=== PATIENT | female | born 1945 | race Caucasian/White ===

== ENCOUNTER 2016-07-30 19:06 | Emergency (ER) | payer MEDICARE ==
[2016-07-30] MEDS ORDERED: methylPREDNISolone 125 MG* 2 ML VIAL IV ONE (19:31)
[2016-07-30] MEDS ORDERED: Albuterol/Ipratropium NEB.SOL* Albuterol 2.5 MG/Ipratropium 0.5 MG 3 ML INH ONE (19:31)
[2016-07-30] MEDS ORDERED: predniSONE TAB* 20 MG PO ONE (20:31)
--- NOTE | 2016-07-30 20:41 | RAD ---
INDICATION: Short of breath . History of lung carcinoma. COMPARISON: Chest x-ray March 13, 2015 TECHNIQUE: AP seated and lateral views were obtained. FINDINGS: Bones/Soft Tissues: There are no acute bony findings. Cardiomediastinal: The cardiomediastinal silhouette is normal. Lungs: There are chronic basilar interstitial changes right greater than left.. There is mild volume loss in the right chest. Pleura: There are no pleural effusions. Other: None IMPRESSION: NO ACTIVE DISEASE.
--- NOTE | 2016-07-30 20:54 | ED ---
mariluz Cary Timothy, scribed for Roger Novoa MD on 07/30/16 at 1936 . Shortness of Breath - HPI Summary HPI Summary: Kassy Mcdonald is a 71 yo female presenting to [facility] with SOB since 1800 tonight. She states she has also had some diifciulty swallowing. Her Family is present in room. She states she normally when she has SOB from her COPD when she stops moving she has no difficulty breathing, but currently has dyspnea at rest. She has self-medicated with duoneb. Her MHx includes Afib, SD, CAD, coronary stent, HLD, HTN, Lung CA w/ radiation therapy, COPD, emphysema, bronchitis, GERD, gall bladder disease, hysterectomy, renal disease, nephrectomy (right), arthritis, shingles, depression, anxiety, tobacco use. - History of Current Complaint Time Seen by Provider: 07/30/16 19:30 Hx Obtained From: Patient Onset/Duration: Sudden Onset, Lasting Hours, Still Present Timing: Constant Current Severity: Moderate Dyspnea At: Rest - Allergy/Home Medications Allergies/Adverse Reactions: Allergies Allergy/AdvReac Type Severity Reaction Status Date / Time Adhesive Tape [Plastic Tape] Allergy Mild Rash Verified 05/13/13 12:09 Latex Allergy Unknown Unknown Verified 05/13/13 12:09 Reaction Details Pregabalin [From Lyrica] Allergy Altered Verified 05/13/13 12:10 Mental Status Monitor Stickers Allergy Mild Rash Uncoded 05/13/13 12:09 PMH/Surg Hx/FS Hx/Imm Hx Endocrine/Hematology History: Reports: Hx Thyroid Disease Denies: Hx Anticoagulant Therapy, Hx Blood Transfusions, Hx Diabetes, Other Endocrine/Hematological Disorders Cardiovascular History: Reports: Hx Angina, Hx Atrial Fibrillation - well controlled and no meds per pt and daughter, Hx Coronary Artery Disease, Hx Hypercholesterolemia, Hx Hypertension - medicated, Hx Myocardial Infarction, Hx Syncope, Other Cardiovascular Problems/Disorders - HX OF LUNG CA Denies: Hx Congestive Heart Failure, Hx Pacemaker/ICD, Hx Valvular Heart Disease Respiratory History: Reports: Hx Chronic Obstructive Pulmonary Disease (COPD), Hx Lung Cancer, Hx Seasonal Allergies, Hx Sleep Apnea - havent had sleep study, Other Respiratory Problems/Disorders - LUNG CA Denies: Hx Asthma, Hx Pneumonia GI History: Reports: Hx Gall Bladder Disease, Hx Gastroesophageal Reflux Disease Denies: Other GI Disorders - colonoscopy found polyps benign 2011 History: Reports: Hx Renal Disease, Other Problems/Disorders - Right Nephrectomy. 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, Other Musculoskeletal History - back pain when weather is damp Sensory History: Reports: Hx Contacts or Glasses Denies: Hx Hearing Aid, Other Sensory Impairments Opthamlomology History: Reports: Hx Contacts or Glasses Denies: Other Sensory Impairments Neurological History: Denies: Hx Dementia, Hx Seizures, Other Neuro Impairments/Disorders Psychiatric History: Reports: Hx Anxiety - ON MEDICATION, Hx Depression Denies: Hx Eating Disorder, Hx Panic Disorder, Hx Suicide Attempt, Hx of Violent Episodes Against Others, Hx Substance Abuse, Other Psychiatric Issues/ Disorders - Cancer History Cancer Type, Location and Year: Lung Cancer, treated w/ radiation, 2013. RENAL CANCER W/RIGHT NEPHRECTOMY Hx Radiation Therapy: Yes - Surgical History Surgery Procedure, Year, and Place: HYSTERECTOMY, GALLBLADDER 2012, CARDIAC CATH 2012, RIGHT NEPHRECTOMY 2012, Hx Anesthesia Reactions: No Infectious Disease History: Reports: Hx Shingles Denies: Hx Hepatitis, Hx Human Immunodeficiency Virus (HIV), History Other Infectious Disease, Traveled Outside the [place] in Last 30 Days - Family History Known Family History: Positive: Cardiac Disease, Hypertension Negative: Diabetes - Social History Alcohol Use: None Substance Use Type: Reports: None Hx Tobacco Use: Yes Smoking Status (MU): Former Smoker Have You Smoked in the Last Year: No Review of Systems Constitutional: Negative Eyes: Negative ENT: Negative Cardiovascular: Negative Positive: Shortness Of Breath Gastrointestinal: Negative Genitourinary: Negative Musculoskeletal: Negative Skin: Negative Neurological: Negative Psychological: Normal All Other Systems Reviewed And Are Negative: Yes Physical Exam Triage Information Reviewed: Yes Vital Signs On Initial Exam: Initial Vitals Temp Pulse Resp BP Pulse Ox 98.2 F 124 20 119/66 98 07/30/16 20:37 07/30/16 20:37 07/30/16 20:37 07/30/16 20:37 07/30/16 20:37 Vital Signs Reviewed: Yes Appearance: Positive: Well-Appearing - mild sob Skin: Positive: Warm Head/Face: Positive: Normal Head/Face Inspection Eyes: Positive: QUIANA ENT: Positive: Hearing grossly normal Neck: Positive: Supple Respiratory/Lung Sounds: Positive: Decreased Breath Sounds, Wheezes - scattered bilat exp wheezes with prolonged expiration Cardiovascular: Positive: RRR Abdomen Description: Positive: Nontender, Soft Bowel Sounds: Positive: Present Musculoskeletal: Positive: Strength/ROM Intact Neurological: Positive: Alert, Oriented to Person Place, Time Psychiatric: Positive: Affect/Mood Appropriate Diagnostics - Vital Signs Vital Signs Temp Pulse Resp BP Pulse Ox 07/30/16 20:37 98.2 F 124 20 119/66 98 - Laboratory Result Diagrams: 07/30/16 21:50 07/30/16 21:50 Lab Statement: Any lab studies that have been ordered have been reviewed, and results considered in the medical decision making process. - Radiology CXR Xray Interpretation: No Acute Changes - IMPRESSION: NO ACTIVE DISEASE. Radiology Interpretation Completed By: Radiologist - EKG 2032 Cardiac Rate: Tachycardia - 120 BPM EKG Interpretation: Sinus tachycardia at 120 BPM Re-Evaluation - Re-Evaluation First Eval Re-Evaluation Time: 22:20 Change: Improved Comment: Discussed lab and imaging results with Pt, she is agreeable to be discharged. Course/Dx - Course Assessment/Plan: Kassy Mcdonald is a 71 yo female presenting to [facility] with dyspnea at rest soiince 1800 tonight. In the ED course she received Solu-Medrol, deltasone, and Duoneb. Her CXR suggests no active disease. Her EKG suggests sinus tachycardia. After clinical examination and review of her lab and imaging studies she will be discharged home with COPD exacerbation with appropriate instructions. - Diagnoses Provider Diagnoses: COPD exacerbation Discharge - Discharge Plan Condition: Improved Disposition: HOME Prescriptions: predniSONE TAB* [Deltasone TAB*] 40 mg PO DAILY #8 tab Patient Education Materials: COPD (Chronic Obstructive Pulmonary Disease) (ED) Referrals: Viral Brady MD [Primary Care Provider] - 2 Days Additional Instructions: Please follow up with your primary care physician regarding your visit to the emergency department today. Return to the emergency department with any new or recurring symptoms. The documentation as recorded by the mariluz russell Timothy accurately reflects the service I personally performed and the decisions made by me, Roger Novoa MD.
[2016-07-30 21:57] LABS: Hematocrit 34 % (35-47); Hemoglobin 10.9 g/dl (12.0-16.0); Mean Corpuscular HGB Conc 32 g/dl (31-36); Mean Corpuscular Hemoglobin 29 pg (27-31); Mean Corpuscular Volume 90 fL (80-97); Mean Platelet Volume 7 um3 (7.4-10.4); Red Blood Count 3.75 10^6/ul (4.0-5.4); Red Cell Distribution Width 14 % (10.5-15); White Blood Count 7.1 10^3/ul (3.5-10.8)
[2016-07-30 22:12] LABS: Albumin 3.8 g/dL (3.2-5.2); BUN/Creatinine Ratio 14.7 (8-20); Calcium 9.1 mg/dL (8.6-10.3); EGFR African American 74.4 (>60); EGFR Non-African American 57.8 (>60); Globulin 3.5 g/dL (2-4); Potassium 3.5 mmol/L (3.5-5.0); Total Bilirubin 0.3 mg/dL (0.2-1.0); Total Protein 7.3 g/dL (6.4-8.9)
[2016-07-30 22:14] LABS: Troponin I 0.01 ng/mL (<0.04)
[2016-07-30 22:53] VITALS: BP 117/88
== END 2016-07-30 22:54 | disposition home or self-care (01) ==
LOC: ED 19:06
DX: J44.1 Chronic obstructive pulmonary disease with (acute) exacerbation (principal); E07.9 Disorder of thyroid, unspecified; I48.91 Unspecified atrial fibrillation; I10 Essential (primary) hypertension; E78.00 Pure hypercholesterolemia, unspecified; I25.10 Atherosclerotic heart disease of native coronary artery without angina pectoris; J44.9 Chronic obstructive pulmonary disease, unspecified; I25.2 Old myocardial infarction; F41.9 Anxiety disorder, unspecified; F32.9 Major depressive disorder, single episode, unspecified; Z85.118 Personal history of other malignant neoplasm of bronchus and lung; Z90.710 Acquired absence of both cervix and uterus; Z90.49 Acquired absence of other specified parts of digestive tract; Z91.040 Latex allergy status; Z88.8 Allergy status to other drugs, medicaments and biological substances; Z91.048 Other nonmedicinal substance allergy status; Z87.891 Personal history of nicotine dependence
CPT/HCPCS: 36415; 71020; 80053; 83605; 83880; 84484; 85025; 93005; 94640; 99282; A9270-GY; J2930; J7512

== ENCOUNTER 2016-09-24 10:34 | Emergency (ER) | payer MEDICARE ==
--- NOTE | 2016-09-24 12:19 | UC ---
Lower Extremity/Ankle HPI - HPI Summary HPI Summary: 71 y/o female presents to the urgent care accompany by daughter c/o left lower leg swollen for the past week. Pt has HX of lung cancer, kidney cancer s/p radiation 4 yeas ago, A-fib, COPD, HTN. Pt states her pain is 8/10 constant w/ o any radiation, associated w/ mild numbness, swelling. Pt states she has a f/ u appt with DR Light the oncologist on 10/01/2016. Pt also reports she has mild vaginal itchiness after taking the Z-nela 1 week ago. Pt denies fever, SOB, chest pain, abdominal pain, N/V/D,no urinary symptoms or dizziness. Pt has not other complains - History of Current Complaint Hx Obtained From: Patient, Family/Miner Helper - daughter Hx Last Menstrual Period: hysterectomy ?: No Onset/Duration: Gradual Onset, Lasting Weeks, Still Present Severity Initially: Mild Severity Currently: Moderate Pain Intensity: 8 Pain Scale Used: 0-10 Numeric Aggravating Factor(s): Ambulation Alleviating Factor(s): Rest, Ice Able to Bear Weight: Yes - Risk Factors Gout Risk Factors: Negative DVT Risk Factors: Smoking, Malignancy Septic Arthritis Risk Factor: Negative <Annemarie Ruffin - Last Filed: 09/25/16 19:29> <Delphine Redman - Last Filed: 09/25/16 20:50> - History of Current Complaint Chief Complaint: UCLowerExtremity Stated Complaint: SWOLLEN LEG Time Seen by Provider: 09/24/16 11:55 - Allergies/Home Medications Allergies/Adverse Reactions: Allergies Allergy/AdvReac Type Severity Reaction Status Date / Time Adhesive Tape [Plastic Tape] Allergy Mild Rash Verified 05/13/13 12:09 Latex Allergy Unknown Unknown Verified 05/13/13 12:09 Reaction Details Pregabalin [From Lyrica] Allergy Altered Verified 05/13/13 12:10 Mental Status Monitor Stickers Allergy Mild Rash Uncoded 05/13/13 12:09 Home Medications: Home Medications Albuterol HFA INHALER* [Ventolin HFA Inhaler*] 1 puff INH QID PRN 09/24/16 [ History Confirmed 09/24/16] predniSONE TAB* [Deltasone TAB*] 40 mg PO DAILY PRN 09/24/16 [History Confirmed 09/24/16] PMH/Surg Hx/FS Hx/Imm Hx Previously Healthy: Yes Cardiovascular History: Cardiac Disease, Hypertension, Atrial Fibrillation Respiratory History: COPD Cancer History: Lung Cancer - s/p radiation 4 years ago. Other Cancer History: Kidney cancer s/p radiation 4 years ago Other History Of: Negative For: Anticoagulant Therapy - Surgical History Surgical History: Yes Surgery Procedure, Year, and Place: HYSTERECTOMY, GALLBLADDER 2012, CARDIAC CATH 2012, RIGHT NEPHRECTOMY 2012, - Family History Known Family History: Positive: Unknown, Cardiac Disease, Hypertension Negative: Diabetes - Social History Occupation: Retired Lives: With Family Alcohol Use: None Substance Use Type: None Smoking Status (MU): Former Smoker Have You Smoked in the Last Year: No When Did the Patient Quit Smoking/Using Tobacco: quit 3 years ago - Immunization History Most Recent Influenza Vaccination: FALL 2013 Most Recent Tetanus Shot: UNKNOWN Most Recent Pneumonia Vaccination: UP TO DATE <Annemarie Ruffin - Last Filed: 09/25/16 19:29> Review of Systems Constitutional: Negative Skin: Negative Eyes: Negative ENT: Negative Respiratory: Negative Cardiovascular: Negative Gastrointestinal: Negative Genitourinary: Other - Vaginal itchiness. Motor: Negative Neurovascular: Negative Musculoskeletal: Edema - Left lower leg swollen and painful. Neurological: Negative Psychological: Negative All Other Systems Reviewed And Are Negative: Yes <Annemarie Ruffin - Last Filed: 09/25/16 19:29> Physical Exam Triage Information Reviewed: Yes Appearance: Well-Appearing, No Pain Distress, Well-Nourished, Obese - Patient walked in to the clinic w/ the helps of a walker and is now sitting in a chair w /o any apparent distress and w/ her O2 mask Vital Signs: Initial Vital Signs Temp 98 F 09/24/16 10:53 Pulse 111 09/24/16 10:53 Resp 17 09/24/16 10:53 BP 142/82 09/24/16 10:53 Pulse Ox 95 09/24/16 10:53 Eye Exam: Normal Eyes: Positive: Conjunctiva Clear - PERRLA, EOMI, fundi grossly normal ENT Exam: Normal ENT: Positive: Normal ENT inspection, Hearing grossly normal, Pharynx normal, TMs normal Dental Exam: Normal Neck exam: Normal Neck: Positive: Supple, Nontender, No Lymphadenopathy Respiratory Exam: Normal Respiratory: Positive: Chest non-tender, Lungs clear, Normal breath sounds Cardiovascular Exam: Normal Cardiovascular: Positive: RRR, No Murmur, Pulses Normal, Brisk Capillary Refill Abdominal Exam: Normal Abdomen Description: Positive: Nontender, Soft. Negative: CVA Tenderness (R), CVA Tenderness (L) Bowel Sounds: Positive: Present Musculoskeletal: Positive: Edema @ - left lower extremity w/ moderate edema and tender to palpation when compare to the RT LE. Femoral, popliteal, posterior tibial, and dorsalis pedis pulses with in normal limits, positive sensation, reflexes and capillary refill WNL, skin w/ moderate dryness. Unable to perform gómez sign due to Pt inability to be supine. FROM of LF ankle. Neurological Exam: Normal - A&O x 3, CNII-CNXII WNL Psychological Exam: Normal Skin Exam: Normal <Annemarie Ruffin - Last Filed: 09/25/16 19:29> Vital Signs: Initial Vital Signs Temp 98 F 09/24/16 10:53 Pulse 111 09/24/16 10:53 Resp 17 09/24/16 10:53 BP 142/82 09/24/16 10:53 Pulse Ox 95 09/24/16 10:53 <Delphine Redman - Last Filed: 09/25/16 20:50> Lower Extremity Course/Dx - Course Course Of Treatment: 71 y/o female presents to the urgent care accompany by daughter c/o left lower leg swollen for the past week. Pt has HX of lung cancer , kidney cancer s/p radiation 4 yeas ago, A-fib, COPD, HTN. Pt states her pain is 8/10 constant w/o any radiation, associated w/ mild numbness, swelling. Pt states she has a f/u appt with DR Light the oncologist on 10/01/2016. Pt also reports she has mild vaginal itchiness after taking the Z-nela 1 week ago. Pt denies fever, SOB, chest pain, abdominal pain, N/V/D,no urinary symptoms or dizziness. PE abnormal findings:left lower extremity w/ moderate pitting edema and tender to palpation when compare to the RT LE. Femoral, popliteal, posterior tibial, and dorsalis pedis pulses with in normal limits, positive sensation, reflexes and capillary refill WNL, skin w/ moderate dryness. Unable to perform gómez sign due to Pt inability to be supine. FROM of LF ankle. Pt W/ PMHX of CA. Venous Doppler ordered to r/o DVT. Result: No evidence of DVT. Pt Rx Tylenol PO to alleviate swelling and pain. Advised to wear compression stocking and elevate leg, decrease salt in the diet to avoid retention of fluid and since BP elevated.. F/u with PCP as soon as possible for further maangement. Pt understood and agreed. Left the clinic A&OX3, walking w/ the help of the walker. -Vulvocandidiasis: Pt decline pelvic examination. Pt Rx 1 tab PO 150mg PO qd once to alleviate symptoms. - Differential Dx/Diagnosis Differential Diagnosis/HQI/PQRI: Cellulitis, Compartment Syndrome, Phlebitis, Tendonitis, Other - DVT, lymphangitis, venous insufficiency, Provider Diagnoses: 1-Left lower leg edema. 2-Vulvovaginal candidiasis - Physician Notifications Discussed Patient Care With: Delphine Redman - DR Feroz salazar with Pt care and treatment. <Annemarie Ruffin - Last Filed: 09/25/16 19:29> Discharge <Annemarie Ruffin - Last Filed: 09/25/16 19:29> <Delphine Redman - Last Filed: 09/25/16 20:50> - Discharge Plan Condition: Stable Disposition: HOME Prescriptions: Acetaminophen TAB* [Tylenol TAB*] 650 mg PO Q4H PRN #30 tab PRN Reason: Pain Fluconazole [Fluconazole 150 mg tab] 150 mg PO ONCE #1 tab Patient Education Materials: Vulvovaginal Candidiasis (ED), Leg Edema (ED) Referrals: Viral Brady MD [Primary Care Provider] - As Soon As Possible Additional Instructions: Please taek medications as instructed to alleviate symptoms. Please wear compression stockings and keep leg elevated. Please f/u with your PCP as soon as possible for further management and treatment. Please decrease salt in your diet, If you develop SOB, chest pain please go immediately to the ER. Attestation Statement User Type: Provider - I was available for consult. This patient was seen by the advanced practice provider. The patient was not presented to, seen by, or examined by me.-Lisbet <Delphine Redman - Last Filed: 09/25/16 20:50>
[2016-09-24 13:12] VITALS: BP 130/80
--- NOTE | 2016-09-24 13:32 | RAD ---
INDICATION: Left lower extremity edema. COMPARISON: Comparison is made with a prior study from April 26, 2012. TECHNIQUE: Multiple real-time, color flow and Doppler tracings of the left lower extremity were obtained. FINDINGS: The common femoral, femoral, profunda femoral and popliteal veins all demonstrate normal compressibility, augmentation with compression and phasic response with respiration. The posterior tibial veins demonstrate normal compressibility and augmentation with compression. The peroneal veins were not visualized likely due to the patient's body habitus. IMPRESSION: SLIGHTLY LIMITED EXAM, NO EVIDENCE FOR DEEP VENOUS THROMBOSIS.
== END 2016-09-24 13:58 | disposition home or self-care (01) ==
LOC: UCEAST 10:34
DX: R60.0 Localized edema (principal); B37.3 Candidiasis of vulva and vagina; I48.91 Unspecified atrial fibrillation; J44.9 Chronic obstructive pulmonary disease, unspecified; I10 Essential (primary) hypertension; Z91.040 Latex allergy status; Z85.528 Personal history of other malignant neoplasm of kidney; Z85.118 Personal history of other malignant neoplasm of bronchus and lung; Z92.3 Personal history of irradiation; Z79.52 Long term (current) use of systemic steroids; Z87.891 Personal history of nicotine dependence
CPT/HCPCS: 99212; G0463

== ENCOUNTER 2017-03-13 00:38 | Emergency (ER) | payer MEDICARE ==
[2017-03-13 03:40] LABS: ABS Basophils 0 10^3/ul (0-0.2); ABS Eosinophils 0.1 10^3/ul (0-0.6); ABS Lymphocytes 1.7 10^3/ul (1.0-4.8); ABS Monocytes 0.3 10^3/ul (0-0.8); ABS Neutrophils 4.7 10^3/ul (1.5-7.7); ABS Nucleated RBC 0 10^3/ul; Eosinophil % 1.5 % (0-6); Hematocrit 33 % (35-47); Hemoglobin 10.8 g/dl (12.0-16.0); Lymphocyte % 24.8 % (25-47); Mean Corpuscular HGB Conc 33 g/dl (31-36); Mean Corpuscular Hemoglobin 30 pg (27-31); Mean Corpuscular Volume 91 fL (80-97); Mean Platelet Volume 7 um3 (7.4-10.4); Nucleated Red Blood Cells % 0.1; Platelet Count 217 10^3/ul (150-450); Red Blood Count 3.57 10^6/ul (4.0-5.4); Red Cell Distribution Width 14 % (10.5-15); White Blood Count 6.9 10^3/ul (3.5-10.8)
[2017-03-13 03:51] LABS: EGFR Non-African American 66.6 (>60)
[2017-03-13 05:08] LABS: Urine Appearance Cloudy; Urine Blood 1+ (Negative); Urine Color Yellow; Urine Ketones Negative (Negative); Urine Protein Negative (Negative); Urine Urobilinogen Negative (Negative)
[2017-03-13 05:37] VITALS: BP 133/92
--- NOTE | 2017-03-13 08:15 | RAD ---
Indication: Chest pain. 2 views the chest demonstrate no mediastinal shift. Tortuous descending aorta is noted. Lungs are clear. IMPRESSION: No active cardiopulmonary disease is noted.
--- NOTE | 2017-03-20 00:21 | ED ---
Ani Cary Emily, scribed for Viral Jacome MD on 03/13/17 at 0147 . HPI Chest Pain - HPI Summary HPI Summary: This patient is a 71 year old F BIBA to [facility] accompanied by family with a chief complaint of CP that lasted 2 hours and occurred FLIGHT HOSTESS. The patient rates the pain 0/10 in severity. Symptoms aggravated by nothing. Symptoms alleviated by nitroglycerin. Patient reports nausea, diaphoresis, and dizziness. Patient denies SOB. Pt reports having a KS 5 years ago. - History of Current Complaint Chief Complaint: EDChestPainROMI Time Seen by Provider: 03/13/17 01:38 Hx Obtained From: Patient Hx Last Menstrual Period: hysterectomy Onset/Duration: Started Hours Ago, Resolved Timing: Intermittent, Lasting Hours Initial Severity: Severe Current Severity: None Pain Intensity: 0 Pain Scale Used: 0-10 Numeric Aggravating Factor(s): Nothing Alleviating Factor(s): Nothing Associated Signs and Symptoms: Positive: Dizziness, Diaphoresis, Nausea. Negative: Shortness of Breath - Allergy/Home Medications Allergies/Adverse Reactions: Allergies Allergy/AdvReac Type Severity Reaction Status Date / Time Adhesive Tape [Plastic Tape] Allergy Mild Rash Verified 11/05/16 10:08 Latex Allergy Unknown Unknown Verified 11/05/16 10:08 Reaction Details Pregabalin [From Lyrica] Allergy Altered Verified 11/05/16 10:08 Mental Status Monitor Stickers Allergy Mild Rash Uncoded 11/05/16 10:08 PMH/Surg Hx/FS Hx/Imm Hx Previously Healthy: No Endocrine/Hematology History: Reports: Hx Thyroid Disease Denies: Hx Anticoagulant Therapy, Hx Blood Transfusions, Hx Diabetes, Other Endocrine/Hematological Disorders Cardiovascular History: Reports: Hx Angina, Hx Atrial Fibrillation - well controlled and no meds per pt and daughter, Hx Coronary Artery Disease, Hx Hypercholesterolemia, Hx Hypertension - medicated, Hx Myocardial Infarction, Hx Syncope, Other Cardiovascular Problems/Disorders - HX OF LUNG CA Denies: Hx Congestive Heart Failure, Hx Pacemaker/ICD, Hx Valvular Heart Disease Respiratory History: Reports: Hx Chronic Obstructive Pulmonary Disease (COPD), Hx Lung Cancer, Hx Seasonal Allergies, Hx Sleep Apnea - havent had sleep study, Other Respiratory Problems/Disorders - LUNG CA Denies: Hx Asthma, Hx Pneumonia GI History: Reports: Hx Gall Bladder Disease, Hx Gastroesophageal Reflux Disease Denies: Other GI Disorders - colonoscopy found polyps benign 2011 History: Reports: Hx Renal Disease, Other Problems/Disorders - Right Nephrectomy. 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, Other Musculoskeletal History - back pain when weather is damp Sensory History: Reports: Hx Contacts or Glasses Denies: Hx Hearing Aid, Other Sensory Impairments Opthamlomology History: Reports: Hx Contacts or Glasses Denies: Other Sensory Impairments Neurological History: Denies: Hx Dementia, Hx Seizures, Other Neuro Impairments/Disorders Psychiatric History: Reports: Hx Anxiety - ON MEDICATION, Hx Depression, Hx Panic Disorder Denies: Hx Eating Disorder, Hx Suicide Attempt, Hx of Violent Episodes Against Others, Hx Substance Abuse, Other Psychiatric Issues/Disorders - Cancer History Cancer Type, Location and Year: Lung Cancer, treated w/ radiation, 2013. RENAL CANCER W/RIGHT NEPHRECTOMY Hx Chemotherapy: No Hx Radiation Therapy: Yes - Surgical History Surgery Procedure, Year, and Place: HYSTERECTOMY, GALLBLADDER 2012, CARDIAC CATH 2012 (NO STENTS), RIGHT NEPHRECTOMY 2012, Hx Anesthesia Reactions: No Infectious Disease History: No Infectious Disease History: Reports: Hx Shingles Denies: Hx Hepatitis, Hx Human Immunodeficiency Virus (HIV), History Other Infectious Disease, Traveled Outside the [place] in Last 30 Days - Family History Known Family History: Positive: Cardiac Disease, Hypertension Negative: Diabetes - Social History Occupation: Retired Lives: With Family Alcohol Use: None Substance Use Type: Reports: None Hx Tobacco Use: Yes Smoking Status (MU): Former Smoker Have You Smoked in the Last Year: No Review of Systems Positive: Skin Diaphoresis Positive: Chest Pain Negative: Shortness Of Breath Positive: Nausea Neurological: Other - Positive dizziness All Other Systems Reviewed And Are Negative: Yes Physical Exam - Summary Physical Exam Summary: Appearance: Well-appearing, Well-nourished Skin: Warm, Dry, No rash Eyes: Normal, PERRL, EOMI, sclera anicteric ENT: Normal Neck: Supple, nontender Respiratory: Clear to auscultation Cardiovascular: S1, S2, no murmur, no rub, no gallop Abdomen: Soft, nontender, no organomegaly Bowel sounds: Present Musculoskeletal: Normal, Strength/ROM Intact, no edema, pulses symmetrical Neurological: Normal, A&Ox3, cranial nerves II-XII WNL, follows commands, gait not tested, sensation intact to pin and light touch Psychiatric: affect normal, behavior appropriate, dressed appropriately, judgment intact Triage Information Reviewed: Yes Vital Signs On Initial Exam: Initial Vitals Temp Pulse Resp BP Pulse Ox 97.8 F 114 17 137/71 98 03/13/17 00:59 03/13/17 00:59 03/13/17 00:59 03/13/17 00:59 03/13/17 00:59 Vital Signs Reviewed: Yes - Michael Coma Scale Coma Scale Total: 15 Diagnostics - Vital Signs Vital Signs Temp Pulse Resp BP Pulse Ox 03/13/17 01:00 14 123/68 03/13/17 00:59 97.8 F 114 17 137/71 98 - Laboratory Lab Results: Lab Results 03/13/17 03/13/17 03/13/17 Range/Units 02:44 02:44 02:44 WBC 6.9 (3.5-10.8) 10^3/ul RBC 3.57 L (4.0-5.4) 10^6/ul Hgb 10.8 L (12.0-16.0) g/dl Hct 33 L (35-47) % MCV 91 (80-97) fL MCH 30 (27-31) pg MCHC 33 (31-36) g/dl RDW 14 (10.5-15) % Plt Count 217 (150-450) 10^3/ul MPV 7 L (7.4-10.4) um3 Neut % (Auto) 68.8 (38-83) % Lymph % (Auto) 24.8 L (25-47) % Mcmullen % (Auto) 4.4 (1-9) % Eos % (Auto) 1.5 (0-6) % Baso % (Auto) 0.5 (0-2) % Absolute Neuts (auto) 4.7 (1.5-7.7) 10^3/ul Absolute Lymphs (auto) 1.7 (1.0-4.8) 10^3/ul Absolute Monos (auto) 0.3 (0-0.8) 10^3/ul Absolute Eos (auto) 0.1 (0-0.6) 10^3/ul Absolute Basos (auto) 0 (0-0.2) 10^3/ul Absolute Nucleated RBC 0 10^3/ul Nucleated RBC % 0.1 D-Dimer, Quantitative 222 (Less Than 230) ng/mL Sodium 138 (133-145) mmol/L Potassium 4.1 (3.5-5.0) mmol/L Chloride 102 (101-111) mmol/L Carbon Dioxide 30 (22-32) mmol/L Anion Gap 6 (2-11) mmol/L BUN 16 (6-24) mg/dL Creatinine 0.84 (0.51-0.95) mg/dL Est GFR ( Amer) 85.7 (>60) Est GFR (Non-Af Amer) 66.6 (>60) BUN/Creatinine Ratio 19.0 (8-20) Glucose 116 H (70-100) mg/dL Calcium 9.3 (8.6-10.3) mg/dL Total Bilirubin 0.40 (0.2-1.0) mg/dL AST 15 (13-39) U/L ALT 10 (7-52) U/L Alkaline Phosphatase 94 (34-104) U/L Troponin I 0.01 (<0.04) ng/mL Total Protein 6.8 (6.4-8.9) g/dL Albumin 3.7 (3.2-5.2) g/dL Globulin 3.1 (2-4) g/dL Albumin/Globulin Ratio 1.2 (1-3) Urine Color Urine Appearance Urine pH (5-9) Ur Specific Stuart (1.010-1.030) Urine Protein (Negative) Urine Ketones (Negative) Urine Blood (Negative) Urine Nitrate (Negative) Urine Bilirubin (Negative) Urine Urobilinogen (Negative) Ur Leukocyte Esterase (Negative) Urine WBC (Auto) (Absent) Urine RBC (Auto) (Absent) Ur Squamous Epith Cells (Absent) Ur Transition Epith Cell (Absent) Urine Bacteria (Absent) Urine Yeast (Absent) Urine Glucose (Negative) 03/13/17 Range/Units 04:37 WBC (3.5-10.8) 10^3/ul RBC (4.0-5.4) 10^6/ul Hgb (12.0-16.0) g/dl Hct (35-47) % MCV (80-97) fL MCH (27-31) pg MCHC (31-36) g/dl RDW (10.5-15) % Plt Count (150-450) 10^3/ul MPV (7.4-10.4) um3 Neut % (Auto) (38-83) % Lymph % (Auto) (25-47) % Mcmullen % (Auto) (1-9) % Eos % (Auto) (0-6) % Baso % (Auto) (0-2) % Absolute Neuts (auto) (1.5-7.7) 10^3/ul Absolute Lymphs (auto) (1.0-4.8) 10^3/ul Absolute Monos (auto) (0-0.8) 10^3/ul Absolute Eos (auto) (0-0.6) 10^3/ul Absolute Basos (auto) (0-0.2) 10^3/ul Absolute Nucleated RBC 10^3/ul Nucleated RBC % D-Dimer, Quantitative (Less Than 230) ng/mL Sodium (133-145) mmol/L Potassium (3.5-5.0) mmol/L Chloride (101-111) mmol/L Carbon Dioxide (22-32) mmol/L Anion Gap (2-11) mmol/L BUN (6-24) mg/dL Creatinine (0.51-0.95) mg/dL Est GFR ( Amer) (>60) Est GFR (Non-Af Amer) (>60) BUN/Creatinine Ratio (8-20) Glucose (70-100) mg/dL Calcium (8.6-10.3) mg/dL Total Bilirubin (0.2-1.0) mg/dL AST (13-39) U/L ALT (7-52) U/L Alkaline Phosphatase (34-104) U/L Troponin I (<0.04) ng/mL Total Protein (6.4-8.9) g/dL Albumin (3.2-5.2) g/dL Globulin (2-4) g/dL Albumin/Globulin Ratio (1-3) Urine Color Yellow Urine Appearance Cloudy Urine pH 6.0 (5-9) Ur Specific Stuart 1.010 (1.010-1.030) Urine Protein Negative (Negative) Urine Ketones Negative (Negative) Urine Blood 1+ H (Negative) Urine Nitrate Negative (Negative) Urine Bilirubin Negative (Negative) Urine Urobilinogen Negative (Negative) Ur Leukocyte Esterase 3+ H (Negative) Urine WBC (Auto) 3+(>20/hpf) H (Absent) Urine RBC (Auto) 3+(>10/hpf) H (Absent) Ur Squamous Epith Cells Present H (Absent) Ur Transition Epith Cell Present H (Absent) Urine Bacteria 1+ H (Absent) Urine Yeast Present H (Absent) Urine Glucose Negative (Negative) Result Diagrams: 03/13/17 02:44 03/13/17 02:44 Lab Statement: Any lab studies that have been ordered have been reviewed, and results considered in the medical decision making process. - Radiology CXR Radiology Interpretation Completed By: ED Physician - CXR reveals, per ED physician, no acute disease. 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 The patient rates the pain 0/10 in severity. Physical Exam Findings. Nml. An EKG taken at 0108 reveals nml sinus rhythm at 109 BPM with early R wave transition, Q waves V2 through V6, and old anteroseptum KS. CXR reveals, per ED physician, no acute disease. ED physician has reviewed this radiology report. Bloodwork obtained. Patient will be discharged with follow up from PCP. The patient is agreeable with this plan. - Diagnoses Provider Diagnoses: UTI (urinary tract infection), Chest pain, atypical Provider Diagnoses: (Ruled Out): Angina at rest Discharge - Discharge Plan Condition: Stable Disposition: HOME Prescriptions: Ciprofloxacin HCl [Cipro 500 MG TAB] 500 mg PO BID #14 tab Metoprolol Tartrate [Lopressor] 25 mg PO BID 1 Days #60 tab Patient Education Materials: Angina (ED), Urinary Tract Infection in Women (ED) Referrals: Caridad Alvarado NP [Primary Care Provider] - Additional Instructions: STOP CITALOPRAM WHILE TAKING CIPRO FOR UTI The documentation as recorded by the Ani russell Emily accurately reflects the service I personally performed and the decisions made by me, Viral Jacome MD.
== END 2017-03-13 05:38 | disposition home or self-care (01) ==
LOC: ED 00:38
DX: N39.0 Urinary tract infection, site not specified (principal); R07.89 Other chest pain; R42 Dizziness and giddiness; R11.0 Nausea; Z85.110 Personal history of malignant carcinoid tumor of bronchus and lung; Z87.19 Personal history of other diseases of the digestive system; Z87.891 Personal history of nicotine dependence
CPT/HCPCS: 36415; 71046; 80053; 81003; 81015; 84484; 85025; 85379; 87086; 93005; 99284

== ENCOUNTER 2018-02-03 16:43 | Inpatient (IN) | payer MEDICARE ==
[2018-02-03] MEDS ORDERED: NS 0.9% 1000 ML* 1,000 ML IV ONE (17:00)
[2018-02-03] MEDS ORDERED: Diltiazem IV VIAL* 125 MG in NS 0.9% 100 ML* 100 ML IVPB ONE (17:02)
[2018-02-03] MEDS ORDERED: Albuterol 0.5% CONC NEB.SOL* 5 MG/ML 20 ml BOT INH ONE (17:02)
[2018-02-03] MEDS ORDERED: methylPREDNISolone 125 MG* 2 ML VIAL IV ONE (17:02)
[2018-02-03] MEDS ORDERED: Diltiazem IV* 5 MG/ML 5 ML VIAL (for loading dose/IV Push) (25 MG) IV SLOW PU ONE (17:03)
--- NOTE | 2018-02-03 17:29 | ED ---
Shortness of Breath - HPI Summary HPI Summary: A 72 y/o female presents to the ED c/o difficulty breathing (SOB). Currently, the patient reports no acute pain, but does still have difficulty breathing. In the ED room, the patient has a pulse of 149 BPM and O2 saturation of 90%. As per triage, "Feeling more short of breath then normal. Osygen dependent 2.5L cont. Reports cough with yellow/greenish sputum". According to the patient, she has been having trouble breathing. She stated that she walked from her bedroom to the living room when she suddenly could not breathe. She stated that she initially started having trouble 3 days ago, however, previously (during the weekend) she was completely fine. She initially thought she was coming down with a cold, then a sinus infection, then an ear infection as she also had congestion in her nose and was coughing quite a bit, but her breathing started getting worse. She denies any fever, CP, edema, nausea, vomiting, abdominal pain , but does have a productive cough that produces green/yellow flem. Additionally she does have chronic leg pain for some time. PMHx of COPD, A-fib, angina. Additionally, lost right kidney due to cancer. SHx of former smoker ( quit 6 years ago). On current medications. - History of Current Complaint Chief Complaint: EDShortnessOfBreath Time Seen by Provider: 02/03/18 16:48 Hx Obtained From: Patient Onset/Duration: Sudden Onset, Lasting Days, Still Present Timing: Constant Current Severity: None Dyspnea At: Rest Aggrevating Factors: Nothing Alleviating Factors: Nothing Associated Signs & Symptoms: Cough (Productive) - Allergy/Home Medications Allergies/Adverse Reactions: Allergies Allergy/AdvReac Type Severity Reaction Status Date / Time Adhesive Tape [Plastic Tape] Allergy Mild Rash Verified 11/05/16 10:08 latex Allergy Unknown Unknown Verified 02/03/18 19:15 Reaction Details pregabalin Allergy Altered Verified 02/03/18 19:15 Mental Status Monitor Stickers Allergy Mild Rash Uncoded 11/05/16 10:08 Home Medications: Home Medications Levothyroxine TAB* [Synthroid TAB*] 100 mcg PO DAILY 02/03/18 [History Confirmed 02/03/18] Metoprolol Tartrate TAB* [Lopressor TAB*] 25 mg PO BID 02/03/18 [History Confirmed 02/03/18] amLODIPine TAB* [Norvasc 5 mg TAB*] 2.5 mg PO DAILY 02/03/18 [History Confirmed 02/03/18] PMH/Surg Hx/FS Hx/Imm Hx Endocrine/Hematology History: Reports: Hx Thyroid Disease Denies: Hx Anticoagulant Therapy, Hx Blood Transfusions, Hx Diabetes, Other Endocrine/Hematological Disorders Cardiovascular History: Reports: Hx Angina, Hx Atrial Fibrillation - well controlled and no meds per pt and daughter, Hx Coronary Artery Disease, Hx Hypercholesterolemia, Hx Hypertension - medicated, Hx Myocardial Infarction, Hx Syncope, Other Cardiovascular Problems/Disorders - HX OF LUNG CA Denies: Hx Congestive Heart Failure, Hx Pacemaker/ICD, Hx Valvular Heart Disease Respiratory History: Reports: Hx Chronic Obstructive Pulmonary Disease (COPD), Hx Lung Cancer, Hx Seasonal Allergies, Hx Sleep Apnea - havent had sleep study, Other Respiratory Problems/Disorders - LUNG CA Denies: Hx Asthma, Hx Pneumonia GI History: Reports: Hx Gall Bladder Disease, Hx Gastroesophageal Reflux Disease Denies: Other GI Disorders - colonoscopy found polyps benign 2011 History: Reports: Hx Renal Disease, Other Problems/Disorders - Right Nephrectomy. 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, Other Musculoskeletal History - back pain when weather is damp Sensory History: Reports: Hx Contacts or Glasses Denies: Hx Hearing Aid, Other Sensory Impairments Opthamlomology History: Reports: Hx Contacts or Glasses Denies: Other Sensory Impairments Neurological History: Denies: Hx Dementia, Hx Seizures, Other Neuro Impairments/Disorders Psychiatric History: Reports: Hx Anxiety - ON MEDICATION, Hx Depression, Hx Panic Disorder Denies: Hx Eating Disorder, Hx Suicide Attempt, Hx of Violent Episodes Against Others, Hx Substance Abuse, Other Psychiatric Issues/Disorders - Cancer History Cancer Type, Location and Year: Lung Cancer, treated w/ radiation, 2012. RENAL CANCER W/RIGHT NEPHRECTOMY Hx Chemotherapy: No Hx Radiation Therapy: Yes - HX OF LUNG AND KIDNEY CA - Surgical History Surgery Procedure, Year, and Place: HYSTERECTOMY, GALLBLADDER 2012, CARDIAC CATH 2012 (NO STENTS), RIGHT NEPHRECTOMY 2012, Hx Anesthesia Reactions: No Infectious Disease History: No Infectious Disease History: Reports: Hx Shingles Denies: Hx Hepatitis, Hx Human Immunodeficiency Virus (HIV), History Other Infectious Disease, Traveled Outside the [place] in Last 30 Days - Family History Known Family History: Positive: Cardiac Disease, Hypertension Negative: Diabetes - Social History Alcohol Use: None Substance Use Type: Reports: None Hx Tobacco Use: Yes Smoking Status (MU): Former Smoker Have You Smoked in the Last Year: No Review of Systems Negative: Fever Negative: Chest Pain Positive: Shortness Of Breath, Cough Negative: Abdominal Pain, Vomiting, Nausea Positive: Other - POSITIVE: CHRONIC LEG PAIN. Negative: Edema All Other Systems Reviewed And Are Negative: Yes Physical Exam - Summary Physical Exam Summary: Appearance: Well-appearing, Well-nourished, lying in bed comfortably Skin: Warm, dry, no obvious rash Eyes: sclera anicteric, no conjunctival pallor ENT: mucous membranes moist, pharynx appears normal Neck: Supple, nontender Respiratory: mild to moderate respiratory distress, dekipnic, few expiratory wheezes without signs of consolidation. Cardiovascular: Normal S1, S2. No murmurs. Normal distal pulses in tibial and radial bilaterally. Marked tachycardia. Abdomen: Soft, nontender, normal active bowel sounds present Musculoskeletal: Normal, Strength/ROM Intact Neurological: A&Ox3, awake and alert, mentation is normal, speech is fluent and appropriate Psychiatric: affect is normal, does not appear anxious or depressed Triage Information Reviewed: Yes Vital Signs On Initial Exam: Initial Vitals Temp Pulse Resp BP Pulse Ox 97.3 F 150 20 110/64 91 02/03/18 16:48 02/03/18 16:48 02/03/18 16:48 02/03/18 16:48 02/03/18 16:48 Vital Signs Reviewed: Yes Diagnostics - Vital Signs Vital Signs Temp Pulse Resp BP Pulse Ox 02/03/18 16:48 97.3 F 150 20 110/64 91 - Laboratory Result Diagrams: 02/03/18 17:12 02/03/18 17:12 Lab Statement: Any lab studies that have been ordered have been reviewed, and results considered in the medical decision making process. - Radiology CXR Radiology Interpretation Completed By: Radiologist - Right sided pleural effusion with underlying right basilar infiltrate should be considered. ED physician reviewed this radiology report. - EKG 1720 Cardiac Rate: Other Rate - 138 BPM EKG Rhythm: Atrial Flutter Summary of EKG Findings: ATRIAL FLUTTER CONSISTENT WITH 2:1 VARIABLE BLOCK. Re-Evaluation - Re-Evaluation First Eval Re-Evaluation Time: 17:55 Change: Improved Comment: BREATHE SOUNDS ARE MUCH BETTER. LESS LABORED AFTER TREATMENT. Course/Dx - Course Course Of Treatment: A 72 y/o female presents to the ED c/o difficulty breathing (SOB). Currently, the patient reports no acute pain, but does still have difficulty breathing. In the ED room, the patient has a pulse of 149 BPM and O2 saturation of 90%. According to the patient, she has been having trouble breathing. She stated that she walked from her bedroom to the living room when she suddenly could not breathe. She stated that she initially started having trouble 3 days ago, however, previously (during the weekend) she was completely fine. She initially thought she was coming down with a cold, then a sinus infection, then an ear infection as she also had congestion in her nose and was coughing quite a bit, but her breathing started getting worse. She denies any fever, CP, edema, nausea, vomiting, abdominal pain, but does have a productive cough that produces green/yellow flem. Additionally she does have chronic leg pain for some time. Physical examination revealed mild to moderate respiratory distress, dekipnic, few expiratory wheezes without signs of consolidation. Marked tachycardia. A CXR revealed right sided pleural effusion with underlying right basilar infiltrate should be considered. An EKG revealed atrial flutter at 138 BPM, atrial flutter consistent with 2:1 variable block. Hematology was done. Labs significant for 3.49 RBC, 38 carbon dioxide, and 109 alkaline phosphatase. In the ED course, the patient recieved Azithromycin, Diltiazem, Albuterol, Ceftriaxone. Solu-Medrol, and IV fluids. During re-evaluation, the patient revealed much better breathe sounds and less labored post-treatment. Patient care was discussed with hospitalist, Dr. Guillen, who accepts patient for admission. Patient will be admitted with a diagnosis of COPD exacerbation, right pleural effusion, and respiratory distress. Patient is agreeable with this plan. - Diagnoses Provider Diagnoses: COPD exacerbation, Pleural effusion, right, Respiratory distress - Physician Notifications Discussed Care of Patient With: Sebastian Guillen Time Discussed With Above Provider: 18:15 Instructed by Provider To: Other - ACCEPTS PATIENT FOR ADMISSION. - Critical Care Time Critical Care Time: 30-74 min - 72-year-old woman with respiratory distress due to atrial flutter with rapid ventricular response and COPD exacerbation with associated new pleural effusion, requiring frequent reevaluation, inhaled beta agonists, IV steroids, and IV calcium channel grayson. Discharge - Sign-Out/Discharge Documenting (check all that apply): Patient Departure - ADMIT, Sign-Out Patient - MAMIE Signing out patient TO: Sebastian Guillen Receiving patient FROM: John Baptiste - Discharge Plan Condition: Improved Disposition: ADMITTED TO [facility] - Billing Disposition and Condition Condition: IMPROVED Disposition: Admitted to [facility] - Attestation Statements Document Initiated by Clover: Yes Documenting Scribe: Henry Romero Provider For Whom Clover is Documenting (Include Credential): John Baptiste MD Scribe Attestation: Henry Cary scribed for John Baptiste MD on 02/03/18 at 1955. Scribe Documentation Reviewed: Yes Provider Attestation: The documentation as recorded by the Henry russell accurately reflects the service I personally performed and the decisions made by me, John Baptiste MD Status of Scribe Document: Viewed
[2018-02-03] MEDS ORDERED: Albuterol/Ipratropium NEB.SOL* Albuterol 2.5 MG/Ipratropium 0.5 MG 3 ML INH ONE ×2 (17:32→17:56)
[2018-02-03 17:40] LABS: INR 1.13 (0.77-1.02)
[2018-02-03 18:01] LABS: EGFR Non-African American 59.1 (>60)
[2018-02-03] MEDS ORDERED: cefTRIAXone(*) 1 GM in NS 0.9% 50 ML* 50 ML IVPB ONE (18:05)
[2018-02-03] MEDS ORDERED: Azithromycin IV(*) 500 MG in NS 0.9% 250 ML* 250 ML IVPB ONE (18:05)
[2018-02-03 18:15] LABS: Hematocrit 31 % (35-47); Hemoglobin 10.1 g/dl (12.0-16.0); Mean Corpuscular HGB Conc 32 g/dl (31-36); Mean Corpuscular Hemoglobin 29 pg (27-31); Mean Corpuscular Volume 90 fL (80-97); Mean Platelet Volume 6.4 fL (7.4-10.4); Platelet Count 294 10^3/ul (150-450); Red Blood Count 3.49 10^6/ul (4.00-5.40); Red Cell Distribution Width 15 % (10.5-15); White Blood Count 6.3 10^3/ul (3.5-10.8)
[2018-02-03 18:16] LABS: ABS Basophils 0.5 10^3/ul (0-0.2); ABS Eosinophils 1.6 10^3/ul (0-0.6); ABS Lymphocytes 20.6 10^3/ul (1.0-4.8); ABS Monocytes 6.4 10^3/ul (0-0.8); ABS Neutrophils 4.5 10^3/ul (1.5-7.7); ABS Nucleated RBC 0 10^3/ul; Eosinophil % 1.6 %; Lymphocyte % 20.6 %
[2018-02-03 18:17] LABS: Nucleated Red Blood Cells % 0
[2018-02-03] MEDS ORDERED: Albuterol 2.5 MG/3 ML NEB.SOL* (0.083%) INH PRN (18:57)
[2018-02-03] MEDS ORDERED: Ondansetron INJ* 2 MG/ML VIAL IV PRN (18:57)
[2018-02-03] MEDS ORDERED: Acetaminophen TAB* 325 MG PO PRN (18:57)
[2018-02-03] MEDS ORDERED: Diltiazem IV VIAL* 125 MG in NS 0.9% 100 ML* 100 ML IV SCH (19:00)
[2018-02-03] MEDS ORDERED: methylPREDNISolone 125 MG* 2 ML VIAL IV SCH (19:00)
[2018-02-03] MEDS ORDERED: Cyclobenzaprine TAB* 10 MG PO PRN (19:04)
[2018-02-03] MEDS ORDERED: Heparin DRIP 25,000 UNITS(*) 25,000 UNITS/500 ML BAG IV SCH (19:15)
[2018-02-03] MEDS ORDERED: NS 0.9% 1000 ML* 1,000 ML IV SCH (19:30)
[2018-02-03] MEDS ORDERED: Heparin VIAL(*) 5000 UNITS/ML VIAL (FIVE THOUSAND) ONE (20:53)
[2018-02-03] MEDS ORDERED: Heparin VIAL(*) 5000 UNITS/ML VIAL (FIVE THOUSAND) IV SCH (21:00)
[2018-02-03] MEDS: traZODone TAB* 100 MG PO PRN (21:10)
[2018-02-03] MEDS: predniSONE TAB* 20 MG PO SCH (21:11)
[2018-02-03] MEDS: Metoprolol Tartrate TAB* 25 MG PO SCH (21:11)
[2018-02-03] MEDS: Oxybutynin TAB* 5 MG PO SCH (21:12)
[2018-02-03 21:55] LABS: Urine Appearance Cloudy; Urine Blood 1+ (Negative); Urine Color Yellow; Urine Ketones Negative (Negative); Urine Protein Negative (Negative); Urine Red Blood Cell Trace(0-2/hpf) (Absent); Urine Urobilinogen Negative (Negative); Urine White Blood Cell 3+(>20/hpf) (Absent)
[2018-02-03] MEDS: Albuterol/Ipratropium NEB.SOL* Albuterol 2.5 MG/Ipratropium 0.5 MG 3 ML INH SCH (23:15)
[2018-02-03] MEDS: Mometasone/Formoter 200/5 MDI INH SCH (23:15)
[2018-02-03] MEDS: Gabapentin CAP(*) 400 MG PO SCH (23:31)
[2018-02-04] MEDS: Albuterol/Ipratropium NEB.SOL* Albuterol 2.5 MG/Ipratropium 0.5 MG 3 ML INH SCH ×4 (03:49→20:42)
--- NOTE | 2018-02-04 04:12 | HP ---
CC: Dr. Brady; Caridad Alvarado NP; Dr. Melina Ma; Dr. Champion * HISTORY AND PHYSICAL: DATE OF ADMISSION: 02/03/18. PRIMARY CARE PROVIDERS: Dr. Brady and Caridad Alvarado NP. CONSULTING ORDER ENTRY: Dr. Melina Ma. ATTENDING PROVIDER: Dr. Kaur.* (DICTATED BY GEOFFREY HATCH NP) CHIEF COMPLAINT: Shortness of breath. HISTORY OF PRESENT ILLNESS: Ms. Mcdonald is a 72-year-old female patient, who carries a history of renal CA, lung CA, hypertension, hyperlipidemia, hypothyroid, depression, GERD, COPD, AFib, and a history of an [place], who comes in to our ER today stating that the last few days she bas been progressive worsening shortness of breath in the setting of recently having URI symptoms. She has been having some pressure when she leans forward behind her eyes. She has had a stuffed up runny nose. She has been coughing, bringing up mucopurulent type sputum. She denies having any chest pain, but she also has been noticing that she has been having more and more shortness of breath. She denies having any particularly with exertion. She does admit to being around grandchildren that were sick with cold symptoms. She denies any fevers or chills , but she is concerned today because she was walking to the bathroom only 30 feet and she was profoundly shortness of breath. Family noticed that her lips were blue and EMS did report this as well. According to the patient, they were concerned that they brought her into the hospital. When she got evaluated here she was noted to be in AFib/A-flutter with a rate of 150. She was noted to be short of breath. There was a chest x-ray concerning for infiltrate in the right base and there was concern for COPD exacerbation. We were asked to evaluate for admission. PAST MEDICAL HISTORY: Significant for: 1. Lung CA. 2. Renal CA. 3. Hypertension. 4. Hyperlipidemia. 5. Hypothyroidism. 6. Depression. 7. GERD. 8. COPD. 9. AFib. 10. History of [place]. PAST SURGICAL HISTORY: 1. She has had a right nephrectomy. 2. Hysterectomy. 3. Tonsillectomy. 4. Cholecystectomy. HOME MEDICATIONS: Include: 1. Amlodipine 2.5 mg daily. 2. Tudorza 1 puff inhaled b.i.d. 3. Tylenol 650 mg every 4 hours as needed. 4. Ventolin 1 puff inhaled q.i.d. as needed. 5. Lopressor 25 mg p.o. b.i.d. 6. Synthroid 100 mcg daily. 7. Gabapentin 400 mg at bedtime, 100 mg in the morning. 8. Flexeril 10 mg p.o. b.i.d. as needed. 9. Lipitor 10 mg daily. 10. Trazodone 200 mg p.o. at bedtime as needed. 11. Stiolto 1 inhalation daily. 12. Ditropan 5 mg p.o. b.i.d. 13. Prilosec 20 mg p.o. daily. 14. Nitro 0.4 mg sublingual q.5 minutes x3 p.r.n. chest pain. ALLERGIES: Include TAPE and LYRICA. FAMILY HISTORY: Mother had a history of bladder cancer. Father, she says was a alcoholic. SOCIAL HISTORY: She is a former smoker. She quit 6 years ago. She denies any alcohol use. Surrogate decision maker is Derrell Gill. REVIEW OF SYSTEMS: There is no documented fever. She denied having any significant weight change. She denies having any double vision. There was no rhinorrhea. There was no sore throat. There was a cough. There was dyspnea on exertion. There was no nocturnal dyspnea. She did admit to orthopnea. She denies having any leg swelling. Denies have chest pain. There is no abdominal pain. There is no nausea. There is no vomiting. There is no dysuria. There is no frequency. No seizure, no loss of consciousness, no pruritus, and no skin ulcerations. Review of 14 systems completed, all others were negative. PHYSICAL EXAMINATION GENERAL: At this time, Ms. Mcdonald is a 72-year-old female patient. She is sitting in the ED stretcher. She does not appear to be in any acute distress. She appears to be well-nourished and well-developed. VITAL SIGNS: Blood pressure 115/77, pulse of 150, respirations 18, O2 sat 100% on 3 L, and temperature 97.3. HEENT: Head atraumatic, normocephalic. Eyes: EOMs are intact. Sclerae were anicteric and not pale. Throat: Oral mucosa appears to be dry. No oropharyngeal erythema. NECK: Supple. LUNGS: She were diminished. She did have wheezing noted in the right base. Equal diaphragmatic expansion. HEART: Sounds S1, S2. Irregularly irregular rate. There were no murmurs, rubs or gallops. ABDOMEN: Soft, flat, nontender. Bowel sounds are present. EXTREMITIES: There was no pitting edema. She actually had 5/5 strength and pulses were 2+. NEUROLOGIC: She is awake, alert, and oriented x3. Her speech is clear. Tongue is midline. She has no gross focal deficits. SKIN: Intact. DIAGNOSTIC STUDIES/LAB DATA: Labs: WBC of 6.3, RBC of 3.49, hemoglobin of 10.1, hematocrit of 31, platelet count of 294. INR 1.13. Sodium was 142, potassium of 3.9, chloride of 101, bicarb of 38, BUN of 11, creatinine 0.93, glucose of 90, lactic 1.0, and calcium of 9.1. Total bili of 0.4, AST 13, ALT 11, and alk phos 109. Troponin was 0.04, albumin 3.6. Serology was negative for flu. She did have a chest x-ray. When I reviewed it today, I do appreciate a effusion to the right lower lobe. Radiology read a right pleural effusion with underlying right basilar infiltration to be considered. EKG obtained today, which appears to be atrial flutter with a rate of 138. She does have what appears to be 2:1 block, and it does vary at times. There is no ST elevation or T-wave inversion noted. I reviewed the previous EKG. Previous EKG shows sinus tachycardia with a rate of 120. The A-flutter does appear to be new. She did have an echo done in 2018 and rhythm at that point was normal sinus rate of 85. Her EF was 50% to 55%. Old medical records were reviewed. ASSESSMENT AND PLAN: Ms. Mcdonald is a 72-year-old female patient, coming into the ED today with complaints of shortness of breath, cough, not feeling well, and on evaluation today found to be in atrial flutter with rapid ventricular response. In addition to this, a possible chronic obstructive pulmonary disease exacerbation, she would be admitted under inpatient status for: 1. Chronic obstructive pulmonary disease exacerbation. It is suspected this was probably being brought on by upper respiratory tract infection; however, due to concern because of the increased shortness of breath, pulmonary embolism is on the differential. However, she gives a pretty clearcut history of being around somebody sick and having progressive worsening symptoms. I do think we should put her on neb standing DuoNebs, p.r.n. albuterol. I have ordered Dulera. I put her on azithromycin and Rocephin for that pleural effusion and we will continue with aggressive pulmonary toileting and follow. 2. Atrial flutter. It appears that she has gotten into this. When she went into this, it is unclear. It may have been certainly brought on by the chronic obstructive pulmonary disease exacerbation; however, pulmonary embolism is in the differential. She will be placed on heparin, checking a D-dimer to start, given that she has 1 kidney. The D-dimer is elevated and I certainly will either pursue Dopplers and a V/Q scan or get a CTA of the chest as well. I have ordered an echo. We will try to rate control her with diltiazem. She is only on 6 mg/hour and I will titrate this, we will max it to 20. I will place her in the ICU. If I need to, I will give her digoxin or p.r.n. Lopressor for good control. 3. Hypertension. She will be on a diltiazem drip. 4. Hyperlipidemia. Continue statin therapy. 5. Hypothyroidism. Continue her Synthroid. 6. Depression. Continue supportive care. 7. Gastroesophageal reflux disease. Continue proton pump inhibitor therapy. 8. History of myocardial infarction. She should possibly be on at least a baby aspirin, which I will order and she can follow up with her PCP. She should get established with a granite polisher machine. It appears that last time she saw Cardiology was five years ago. 9. DVT prophylaxis. She will be placed on heparin drip. 10. Code status. Full code. 11. Fluids, electrolytes, and nutrition. Heart healthy diet. TIME SPENT: Time spent on the admission was 60 minutes, greater than half the time spent [id number] with the patient, obtaining my history and physical, the other half time spent going over the plan of care with the patient, implementing plan of care. I discussed the plan of care with my attending, Dr. Kaur. She is in agreement. GEOFFREY HATCH, WEAPONS ELECTRICAL ENGINEERING OFFICER [id number]/[facility] #: [id number] [facility]ALTH SYSTEMWood
[2018-02-04 05:45] LABS: ABS Basophils 0 10^3/ul (0-0.2); ABS Eosinophils 0 10^3/ul (0-0.6); ABS Lymphocytes 0.4 10^3/ul (1.0-4.8); ABS Monocytes 0 10^3/ul (0-0.8); ABS Neutrophils 6.9 10^3/ul (1.5-7.7); ABS Nucleated RBC 0 10^3/ul; Eosinophil % 0.1 %; Hematocrit 27 % (35-47); Hemoglobin 8.7 g/dl (12.0-16.0); Lymphocyte % 6.1 %; Mean Corpuscular HGB Conc 32 g/dl (31-36); Mean Corpuscular Hemoglobin 29 pg (27-31); Mean Corpuscular Volume 90 fL (80-97); Mean Platelet Volume 6.9 fL (7.4-10.4); Nucleated Red Blood Cells % 0; Platelet Count 241 10^3/ul (150-450); Red Blood Count 3.03 10^6/ul (4.00-5.40); Red Cell Distribution Width 15 % (10.5-15); White Blood Count 7.4 10^3/ul (3.5-10.8)
[2018-02-04 05:54] LABS: INR 1.16 (0.77-1.02)
[2018-02-04 06:01] LABS: EGFR Non-African American 61.4 (>60)
[2018-02-04] MEDS: Mometasone/Formoter 200/5 MDI INH SCH ×2 (07:55→23:55)
[2018-02-04] MEDS ORDERED: Perflutren Lipid Microsphere* 3 ML VIAL ONE (08:07)
[2018-02-04] MEDS: Levothyroxine TAB* 100 MCG TAB PO SCH (08:27)
[2018-02-04] MEDS: predniSONE TAB* 20 MG PO SCH (10:04)
[2018-02-04] MEDS: Omeprazole CAP* 20 MG PO SCH (10:04)
[2018-02-04] MEDS: Gabapentin CAP(*) 100 MG PO SCH (10:04)
[2018-02-04] MEDS: Aspirin EC TAB* 81 MG TAB.EC PO SCH (10:05)
[2018-02-04] MEDS: Metoprolol Tartrate TAB* 25 MG PO SCH ×2 (10:06→20:03)
[2018-02-04] MEDS: Oxybutynin TAB* 5 MG PO SCH ×2 (10:07→20:03)
[2018-02-04] MEDS ORDERED: Enoxaparin(*) 100 MG/ML SYR SUBCUT SCH (11:00)
--- NOTE | 2018-02-04 12:30 | ECHO ---
Patient: YASSINE EDWARDS [facility] Rec#: [id number] : 1945 Date: 02/04/2018 Age: 72y Height: 157 cm / 61.8 in Weight: 104 kg / 229.2 lbs Sex: F BSA: 2.02 Room#: [facility] Type: Inpatient Referring: Sebastian Guillen NP Reading: Ashkan Champion MD Technical Adjuster: Julianne Scott RDCS,RDMS Transthoracic Echocardiogram Indication: AFIB BP: 104/57 HR: 87 Rhythm: A-Fib Findings History: HTN, HLD, AK, COPD, AFIB, lung cancer Technical Comments: The study quality is poor. The study is technically limited due to the patient's history of COPD. Left Ventricle: The left ventricular chamber size is normal. Mild concentric left ventricular hypertrophy is observed. The estimated ejection fraction is 50-55%. The endocardium is not well visualized. The assessment of diastolic function is non-diagnostic. Left Atrium: The left atrial chamber size is normal. Right Ventricle: The right ventricular chamber size and systolic function are within normal limits. The right ventricle wall thickness is mildly increased. Right Atrium: The right atrium is slightly dilated. Aortic Valve: The aortic valve leaflets are mildly thickened. There is aortic annular calcification. There is no evidence of aortic regurgitation. There is no evidence of aortic stenosis. Mitral Valve: The mitral valve leaflets do not appear thickened. There is no evidence of mitral regurgitation. There is no evidence of mitral stenosis. Tricuspid Valve: The tricuspid valve leaflets are normal. There is trace tricuspid regurgitation. No pulmonary hypertension is noted. Pulmonic Valve: The pulmonic valve structure is not well visualized. Pericardium: There is no significant pericardial effusion. Aorta: The aortic root appears normal. The aortic arch is not well visualized. Pulmonary Artery: The main pulmonary artery is not well visualized. Venous: The inferior vena cava appears normal in size. There is a greater than 50% respiratory change in the inferior vena cava dimension. Contrast: Definity was used to optimize study. A total of 2.5 ml was used. Summary: There are no significant changes when compared to the previous study done on 12/16/2017 Conclusions The study quality is poor. The study is technically limited due to the patient's history of COPD. Mild concentric left ventricular hypertrophy is observed. The estimated ejection fraction is 50-55%. The endocardium is not well visualized. The assessment of diastolic function is non-diagnostic. There is trace tricuspid regurgitation. Measurements Name Value Normal Range RVIDd (AP) 2D 3.3 cm (0.9 - 2.6) RVDdMajor (2D) 3.3 cm (2.2 - 4.4) RAd ISD 4CH 5.2 cm (3.4 - 4.9) RA (A4C)W 4 cm (2.9 - 4.6) IVSd (2D) 1.1 cm (0.6 - 1) LVPWd (2D) 1.3 cm (0.6 - 1) LVIDd (2D) 5.1 cm (3.6 - 5.4) Aortic Annulus 2.2 cm (1.4 - 2.6) Ao root diameter (2D) 2.9 cm (2.1 - 3.5) Ascending Ao 2.5 cm (2.1 - 3.4) LA dimension (AP) 2D 3.7 cm (2.3 - 3.8) LAd ISD 4CH 5.9 cm (2.9 - 5.3) LA ISD 4CH W 4.3 cm (2.5 - 4.5) Name Value Normal Range LA ESV BP (A/L) index 32 ml/m2 - Name Value Normal Range MV E-wave Vmax 1.1 m/sec - MV deceleration time 107 msec - LV septal e' Vmax 0.11 m/sec - LV E:e' septal ratio 10 ratio - Name Value Normal Range AV Vmax 1.5 m/sec - AV peak gradient 9 mmHg - LVOT Vmax 1.2 m/sec - LVOT peak gradient 6 mmHg - Name Value Normal Range MV Vmax 1.4 m/sec - MV VTI 23 cm - MV peak gradient 8 mmHg - MV mean gradient 3 mmHg - MVA (PHT) 3.3 cm2 - Name Value Normal Range TR Vmax 2.3 m/sec - TR peak gradient 21 mmHg - RAP 8 mmHg - RVSP 29 mmHg - IVC diameter 2 cm - Name Value Normal Range PV Vmax 0.5 m/sec - PV peak gradient 1 mmHg -
--- NOTE | 2018-02-04 13:14 | PN ---
Subjective Date of Service: 02/04/18 Interval History: Pt feels well. Had been coughing up yellow sputum for several days,and on the day of admission "couldn't breathe and turned blue". Denies CP/palpitations/SOB. On 02 at 2.5 L continuously at home Objective Active Medications: Acetaminophen (Tylenol Tab*) 650 mg PO Q4H PRN PRN Reason: FEVER/PAIN Albuterol (Ventolin 2.5 Mg/3 Ml Neb.Rula*) 2.5 mg INH Q2H PRN PRN Reason: SOB/WHEEZING Albuterol/Ipratropium (Duoneb (Albuterol 2.5 Mg/Ipratropium 0.5 Mg)) 1 neb INH [id number] AWAKE [facility] Last Admin: 02/04/18 07:55 Dose: 1 neb Aspirin (Aspirin Ec Tab*) 81 mg PO DAILY [facility] Last Admin: 02/04/18 10:05 Dose: 81 mg Atorvastatin Calcium (Lipitor*) 10 mg PO 1700 [facility] Cyclobenzaprine HCl (Flexeril Tab*) 10 mg PO BID PRN PRN Reason: SPASMS Enoxaparin Sodium (Lovenox(*)) 100 mg SUBCUT Q12H [facility] Last Admin: 02/04/18 10:12 Dose: 100 mg Gabapentin (Neurontin Cap(*)) 100 mg PO QAM [facility] Last Admin: 02/04/18 10:04 Dose: 100 mg Gabapentin (Neurontin Cap(*)) 400 mg PO BEDTIME [facility] Last Admin: 02/03/18 23:31 Dose: 400 mg Diltiazem HCl 125 mg/ Sodium (Chloride) 125 mls @ 5 mls/hr IVPB ED ONCE ONE; Protocol Stop: 02/04/18 18:01 Last Admin: 02/03/18 17:52 Dose: 5 mls/hr Diltiazem HCl 125 mg/ Sodium (Chloride) 125 mls @ 5 mls/hr IV .INITIAL RATE [facility] ; Protocol Ceftriaxone Sodium 1 gm/ (Sodium Chloride) 50 mls @ 200 mls/hr IVPB Q24H [facility] Azithromycin 500 mg/ Sodium (Chloride) 250 mls @ 250 mls/hr IVPB Q24H [facility] Sodium Chloride (Ns 0.9% 1000 Ml*) 1,000 mls @ 100 mls/hr IV PER RATE [facility] Last Admin: 02/03/18 22:39 Dose: 100 mls/hr Levothyroxine Sodium (Synthroid Tab*) 100 mcg PO DAILY@0600 [facility] Last Admin: 02/04/18 08:27 Dose: 100 mcg Metoprolol Tartrate (Lopressor Tab*) 25 mg PO BID [facility] Last Admin: 02/04/18 10:06 Dose: 25 mg Mometasone Furoate/Formoterol Fumar (Dulera 200/5 Mdi*) 2 puff INH BID [facility] Last Admin: 02/04/18 07:55 Dose: 2 puff Omeprazole (Prilosec Cap*) 20 mg PO DAILY@0730 [facility] Last Admin: 02/04/18 10:04 Dose: 20 mg Ondansetron HCl (Zofran Inj*) 4 mg IV Q6H PRN PRN Reason: NAUSEA Oxybutynin Chloride (Ditropan Tab*) 5 mg PO BID [facility] Last Admin: 02/04/18 10:07 Dose: 5 mg Prednisone (Deltasone Tab*) 40 mg PO DAILY [facility] Last Admin: 02/04/18 10:04 Dose: 40 mg Trazodone HCl (Desyrel Tab*) 200 mg PO BEDTIME PRN PRN Reason: SLEEP Last Admin: 02/03/18 21:10 Dose: 200 mg Vital Signs - 8 hr 02/04/18 02/04/18 02/04/18 05:16 05:30 05:46 Temperature Pulse Rate 67 67 75 Respiratory 15 18 18 Rate Blood Pressure 97/52 118/65 104/57 (mmHg) O2 Sat by Pulse 92 93 94 Oximetry 02/04/18 02/04/18 02/04/18 06:26 06:27 07:01 Temperature 98.7 F Pulse Rate 102 45 70 Respiratory 20 Rate Blood Pressure 104/57 109/66 (mmHg) O2 Sat by Pulse 98 95 95 Oximetry 02/04/18 02/04/18 02/04/18 07:59 08:00 09:00 Temperature Pulse Rate 74 94 63 Respiratory 18 19 Rate Blood Pressure (mmHg) O2 Sat by Pulse 98 100 89 Oximetry 02/04/18 02/04/18 10:00 10:04 Temperature Pulse Rate 74 Respiratory 19 Rate Blood Pressure (mmHg) O2 Sat by Pulse 92 Oximetry Oxygen Devices in Use Now: Nasal Cannula Appearance: 72 yo F in nAD, aAOx3 Eyes: No Scleral Icterus, PERRLA Ears/Nose/Mouth/Throat: NL Teeth, Lips, Gums Neck: NL Appearance and Movements; NL JVP, Trachea Midline Respiratory: - - distant breath sounds b/l , crackles at RLL Cardiovascular: NL Sounds; No Murmurs; No JVD, RRR, - - a. flutter on telem Abdominal: NL Sounds; No Tenderness; No Distention, No Hepatosplenomegaly Lymphatic: No Cervical Adenopathy Extremities: No Clubbing, Cyanosis, - - trace pedal edema b/l Skin: No Nodules or Sclerosis Neurological: Alert and Oriented x 3, NL Muscle Strength and Tone Result Diagrams: 02/04/18 05:26 02/04/18 05:26 Microbiology and Other Data: Microbiology 02/03/18 23:00 Gram Stain - Final Sputum 02/03/18 21:31 Legionella Urinary Antigen - Final Urine Negative Legionella Antigen Streptococcus pneumoniae Ag Screen - Final Negative S. 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 fib(cardioverted post nephrectomy several years ago) presented with COPD exacerbation and new A. flutter - Patient Problems (1) Pneumonia Comment: RLL cont tx with Caftriaxone and Azithro Sputum cx positive for GN diplococci and GP bacilli (2) COPD (chronic obstructive pulmonary disease) Comment: in mild exacerbation. Continue usual home inhalers and Prednisone started at admission (3) Atrial flutter with rapid ventricular response Comment: rate controlled on Cardizem gtt.Will d/c gtt and start Cardizem IR Cont lopressor Echo shows EF 55% CArdiology consult pending D/c heparin gtt and start Lovenox. D/w pt Coumadin and NOACS and pt agreed to Xarelto which will be started tonight (4) Hypothyroidism Comment: TSH pending, continue home dose of synthroid. (5) Anemia Comment: normocytic HB at baseline 10 Now down to 8.7, likely dilutional, but cont to monitor since pt is now on anticoagulation will also obtain stool guaiac (6) Swallowing dysfunction Comment: RN noted pt to cough with food. will order swallow eval. Pt offer no complaints (7) DVT prophylaxis Comment: michael
[2018-02-04] MEDS: Citalopram TAB* 40 MG PO SCH (14:02)
[2018-02-04] MEDS: Diltiazem TAB* 60 MG PO SCH ×2 (14:02→17:57)
[2018-02-04] MEDS: Atorvastatin* 10 MG TAB PO SCH (16:38)
[2018-02-04] MEDS: cefTRIAXone(*) 1 GM in NS 0.9% 50 ML* 50 ML IVPB SCH (17:57)
[2018-02-04] MEDS: Azithromycin IV(*) 500 MG in NS 0.9% 250 ML* 250 ML IVPB SCH (19:57)
[2018-02-04] MEDS: traZODone TAB* 100 MG PO PRN (20:03)
[2018-02-04] MEDS: Gabapentin CAP(*) 400 MG PO SCH (20:03)
--- NOTE | 2018-02-04 20:44 | CONS ---
CC: Dr. Brady; Dr. Champion; Hospitalist Service * CARDIOLOGY CONSULTATION: DATE OF CONSULT: 02/04/18 HISTORY OF PRESENT ILLNESS: I was asked by hospitalist service to see this 72- year- old female patient, who presented to the hospital with shortness of breath. She was found to be in atrial flutter/fibrillation, but apparently she had known history atrial flutter/fibrillation. She does have a history of hypertension, hyperlipidemia, hypothyroidism, depression, history of myocardial infarction, lung cancer, renal cancer. Cardiology consult was further requested for management for atrial fibrillation. She had no fever. No chills , no chest pain. She had chest x- ray that showed infiltrate in the right base and she was hospitalized for treatment for COPD exacerbation and pneumonia. She had no nausea, vomiting. No hematochezia. No arm pain. No hemoptysis. No orthopnea was appreciated. She does have obesity. She was started on Cardizem and anticoagulation for her comorbidities and high risk for embolic phenomenon. PAST MEDICAL HISTORY: Includes history of COPD, systemic arterial hypertension , hyperlipidemia, hypothyroidism, depression, atrial fibrillation, history of myocardial infarction, lung cancer, and renal cancer. PAST SURGICAL HISTORY: Includes history of right nephrectomy, hysterectomy, tonsillectomy, and cholecystectomy. MEDICATIONS: As an outpatient include: 1. Amlodipine 2.5 mg daily. 2. Tylenol 650 mg q.4 hours. 3. Ventolin 1 puff 4 times daily. 4. Lopressor 25 mg twice a day. 5. Synthroid 100 mcg daily. 6. Gabapentin 400 mg at bedtime. 7. Lipitor 10 mg daily. 8. Ditropan 5 mg twice a day. 9. Prilosec 20 mg daily. 10. Nitro if needed p.r.n. ALLERGIES: She is allergic to TAPE and LYRICA. FAMILY HISTORY: No family history of premature coronary artery disease. SOCIAL HISTORY: She used to smoke. She quit 6 years ago. No history of illicit drug use. No history of alcohol use. REVIEW OF SYSTEMS: Review of all other systems essentially is negative. PHYSICAL EXAM: On exam, she is morbidly obese. She is mildly tachypneic, but she had no symptoms of chest pain. Her vitals, blood pressure is 113/75; pulse 93, she is in atrial flutter; her temperature is 98.7, respiratory rate 20. Head and Neck Exam: Normocephalic, atraumatic. Head, Ear, Nose, and Throat: Essentially benign. Neck: Supple. JVP is not elevated. No carotid bruit. No masses in the neck are appreciated. Chest: Diminished air entry at the bases with scattered rhonchi. Heart: Regular, S1 and S2. No added sounds, no gallops, no rubs. Abdomen: Obese, soft, positive bowel sounds. Extremities: No edema. No cyanosis. No clubbing. Skin exam is normal. Psych: Normal affect and mood. POSTAL SORTING OFFICER: No focal deficits appreciated. DIAGNOSTIC STUDIES/LAB DATA: Her labs showed the following, white blood cell 7.4, hemoglobin 8.7, hematocrit 27, and platelets 241. Sodium 141, potassium 4.2, chloride 104, total CO2 35, BUN is 12, creatinine 0.90. BNP 116. TSH 0.72. D- dimer 316. Her ECG showed the patient to be in rapid atrial flutter, heart rate 138 beats per minute, and nonspecific T abnormality. Her chest x-ray was reported, right pleural effusion with underlying right infiltrate. Her echocardiogram that was done today showed the patient to have a technically difficult study and poor quality, EF 50% to 55%. No significant valvular disease. IMPRESSION: The patient is a 72-year-old female with: 1. Hospitalization with pneumonia, pleural effusion. 2. Rapid atrial flutter. 3. Known history of atrial flutter/fibrillation from before. 4. Low normal EF 50% to 55%. 5. Systemic arterial hypertension. 6. Hyperlipidemia. 7. Lung cancer and kidney cancer. 8. Status post nephrectomy. 9. Abnormal EKG as described. 10. Anemia. 11. Hypothyroidism. 12. Chronic obstructive pulmonary disease with exacerbation. 13. History of myocardial infarction. PLAN: The patient is currently on telemetry floor. I have discussed her with Dr. Castillo from the hospitalist service. Given this is not new, we will try to have rate control. I agree with Cardizem adding it to her medical regimen and I agree with anticoagulation given she is high risk for cardioembolic source. I agree with Xarelto 20 mg once a day. Definitely, treatment for her pneumonia as you are already doing and keeping a close eye on her hemoglobin is very important. Keep potassium more than 4, magnesium more than 2. Avoid significant caffeinated drinks. Hydration is important in her case especially in the setting of pneumonia. Any further recommendations would be pending her clinical outcome. TIME SPENT: More than half of at least 66 plus minutes was [id number] in the education and counseling mode explaining to the patient and her family who are at the bedside today as well as discussing care with Dr. Castillo from the hospitalist service. [id number]/[facility] #: [id number] [facility]
[2018-02-05] MEDS: Diltiazem TAB* 60 MG PO SCH ×2 (00:18→05:12)
[2018-02-05] MEDS: Albuterol/Ipratropium NEB.SOL* Albuterol 2.5 MG/Ipratropium 0.5 MG 3 ML INH SCH ×3 (01:09→13:00)
[2018-02-05] MEDS: Levothyroxine TAB* 100 MCG TAB PO SCH (05:12)
[2018-02-05] MEDS: Mometasone/Formoter 200/5 MDI INH SCH ×2 (07:56→19:47)
[2018-02-05 08:39] LABS: ABS Basophils 0 10^3/ul (0-0.2); ABS Eosinophils 0 10^3/ul (0-0.6); ABS Lymphocytes 0.8 10^3/ul (1.0-4.8); ABS Monocytes 0.6 10^3/ul (0-0.8); ABS Neutrophils 13.8 10^3/ul (1.5-7.7); ABS Nucleated RBC 0 10^3/ul; Eosinophil % 0 %; Hematocrit 29 % (35-47); Hemoglobin 9.3 g/dl (12.0-16.0); Lymphocyte % 5.4 %; Mean Corpuscular HGB Conc 32 g/dl (31-36); Mean Corpuscular Hemoglobin 29 pg (27-31); Mean Corpuscular Volume 91 fL (80-97); Mean Platelet Volume 6.8 fL (7.4-10.4); Nucleated Red Blood Cells % 0; Platelet Count 293 10^3/ul (150-450); Red Blood Count 3.22 10^6/ul (4.00-5.40); Red Cell Distribution Width 15 % (10.5-15); White Blood Count 15.2 10^3/ul (3.5-10.8)
[2018-02-05] MEDS: Citalopram TAB* 40 MG PO SCH (08:39)
[2018-02-05] MEDS: Omeprazole CAP* 20 MG PO SCH (08:40)
[2018-02-05] MEDS: Oxybutynin TAB* 5 MG PO SCH ×2 (08:40→20:18)
[2018-02-05] MEDS: Gabapentin CAP(*) 100 MG PO SCH (08:40)
[2018-02-05] MEDS: Aspirin EC TAB* 81 MG TAB.EC PO SCH (08:40)
[2018-02-05] MEDS: predniSONE TAB* 20 MG PO SCH (08:40)
[2018-02-05 08:59] LABS: EGFR Non-African American 48.7 (>60)
[2018-02-05] MEDS: Metoprolol Tartrate TAB* 25 MG PO SCH ×2 (09:27→20:19)
[2018-02-05] MEDS: Diltiazem CD CAP* 180 MG PO SCH (10:30)
[2018-02-05] MEDS ORDERED: Polyethylene Glycol 3350* 17 GM PACKET PO ONE (14:21)
--- NOTE | 2018-02-05 14:29 | PN ---
Subjective Date of Service: 02/05/18 Interval History: Pt feels better, c/o feeling tremulous after nebs that were scheduled up to that point. Still coughing up yellow sputum Objective Active Medications: Acetaminophen (Tylenol Tab*) 650 mg PO Q4H PRN PRN Reason: FEVER/PAIN Albuterol (Ventolin 2.5 Mg/3 Ml Neb.Rula*) 2.5 mg INH Q2H PRN PRN Reason: SOB/WHEEZING Albuterol/Ipratropium (Duoneb (Albuterol 2.5 Mg/Ipratropium 0.5 Mg)) 1 neb INH Q6H PRN PRN Reason: WHEEZING Aspirin (Aspirin Ec Tab*) 81 mg PO DAILY [facility] Last Admin: 02/05/18 08:40 Dose: 81 mg Atorvastatin Calcium (Lipitor*) 10 mg PO 1700 [facility] Last Admin: 02/04/18 16:38 Dose: 10 mg Citalopram Hydrobromide (Celexa Tab*) 40 mg PO DAILY [facility] Last Admin: 02/05/18 08:39 Dose: 40 mg Cyclobenzaprine HCl (Flexeril Tab*) 10 mg PO BID PRN PRN Reason: SPASMS Diltiazem HCl (Cardizem Cd Cap*) 180 mg PO DAILY [facility] Last Admin: 02/05/18 10:30 Dose: 180 mg Gabapentin (Neurontin Cap(*)) 100 mg PO QAM [facility] Last Admin: 02/05/18 08:40 Dose: 100 mg Gabapentin (Neurontin Cap(*)) 400 mg PO BEDTIME [facility] Last Admin: 02/04/18 20:03 Dose: 400 mg Ceftriaxone Sodium 1 gm/ (Sodium Chloride) 50 mls @ 200 mls/hr IVPB Q24H [facility] Last Admin: 02/04/18 17:57 Dose: 200 mls/hr Azithromycin 500 mg/ Sodium (Chloride) 250 mls @ 250 mls/hr IVPB Q24H [facility] Last Admin: 02/04/18 19:57 Dose: 250 mls/hr Levothyroxine Sodium (Synthroid Tab*) 100 mcg PO DAILY@0600 [facility] Last Admin: 02/05/18 05:12 Dose: 100 mcg Metoprolol Tartrate (Lopressor Tab*) 25 mg PO BID [facility] Last Admin: 02/05/18 09:27 Dose: 25 mg Mometasone Furoate/Formoterol Fumar (Dulera 200/5 Mdi*) 2 puff INH BID [facility] Last Admin: 02/05/18 07:56 Dose: 2 puff Omeprazole (Prilosec Cap*) 20 mg PO DAILY@0730 [facility] Last Admin: 02/05/18 08:40 Dose: 20 mg Ondansetron HCl (Zofran Inj*) 4 mg IV Q6H PRN PRN Reason: NAUSEA Oxybutynin Chloride (Ditropan Tab*) 5 mg PO BID [facility] Last Admin: 02/05/18 08:40 Dose: 5 mg Prednisone (Deltasone Tab*) 40 mg PO DAILY [facility] Last Admin: 02/05/18 08:40 Dose: 40 mg Rivaroxaban (Xarelto(*)) 20 mg PO 1800 [facility] Trazodone HCl (Desyrel Tab*) 200 mg PO BEDTIME PRN PRN Reason: SLEEP Last Admin: 02/04/18 20:03 Dose: 200 mg Vital Signs - 8 hr 02/05/18 02/05/18 02/05/18 07:34 07:58 08:00 Temperature 98.5 F Pulse Rate 70 70 Respiratory 16 14 19 Rate Blood Pressure 93/64 (mmHg) O2 Sat by Pulse 97 97 Oximetry 02/05/18 02/05/18 02/05/18 08:40 08:51 13:03 Temperature Pulse Rate 75 73 Respiratory 19 16 Rate Blood Pressure 121/81 (mmHg) O2 Sat by Pulse 97 Oximetry Oxygen Devices in Use Now: Nasal Cannula Appearance: 72 yo F in nAD, aAOx3 Eyes: No Scleral Icterus, PERRLA Ears/Nose/Mouth/Throat: NL Teeth, Lips, Gums, Mucous Membranes Moist Neck: NL Appearance and Movements; NL JVP, Trachea Midline Respiratory: Symmetrical Chest Expansion and Respiratory Effort, - - distant breath sounds throughout, occasional mid lung wheeze on left Cardiovascular: NL Sounds; No Murmurs; No JVD, RRR Abdominal: NL Sounds; No Tenderness; No Distention Lymphatic: No Cervical Adenopathy Extremities: No Clubbing, Cyanosis, - - trace pedal edema b/l Skin: No Rash or Ulcers, No Nodules or Sclerosis Neurological: Alert and Oriented x 3, NL Muscle Strength and Tone Result Diagrams: 02/05/18 08:30 12/07/18 08:30 Microbiology and Other Data: Microbiology 02/03/18 23:00 Gram Stain - Final Sputum 02/03/18 21:31 Legionella Urinary Antigen - Final Urine Negative Legionella Antigen Streptococcus pneumoniae Ag Screen - Final Negative S. 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 fib(cardioverted post nephrectomy several years ago) presented with COPD exacerbation and new A. flutter - Patient Problems (1) Pneumonia Comment: RLL cont tx with Ceftriaxone and Azithro Sputum cx positive for GN diplococci and GP bacilli Pt still c/o cough and generalized weakness, will cont inpatient stay for one more day (2) COPD (chronic obstructive pulmonary disease) Comment: in mild exacerbation. Continue usual home inhalers and Prednisone started at admission switch timbo nebs to prn (3) Atrial flutter with rapid ventricular response Comment: rate controlled on Cardizem CD(new med) Cont lopressor Echo shows EF 55% CArdiology consult appreciated, agree with Cardizem CD and Xarelto. Rate controlled. (4) Hypothyroidism Comment: TSH 0.7, continue home dose of synthroid. (5) Anemia Comment: normocytic HB at baseline 10 todAY AT 9.3, likely dilutional, but cont to monitor since pt is now on anticoagulation will also obtain stool guaiac (6) Swallowing dysfunction Comment: RN noted pt to cough with food. Speech recommended more gravy with food. (7) DVT prophylaxis Comment: xarelto Status and Disposition: inpatient, likely d/c to home tomorrow
[2018-02-05] MEDS: Atorvastatin* 10 MG TAB PO SCH (15:44)
[2018-02-05] MEDS: Rivaroxaban TAB(*) 20 MG TAB PO SCH (18:17)
[2018-02-05] MEDS: cefTRIAXone(*) 1 GM in NS 0.9% 50 ML* 50 ML IVPB SCH (18:17)
[2018-02-05] MEDS: Albuterol/Ipratropium NEB.SOL* Albuterol 2.5 MG/Ipratropium 0.5 MG 3 ML INH PRN (19:50)
[2018-02-05] MEDS: Azithromycin IV(*) 500 MG in NS 0.9% 250 ML* 250 ML IVPB SCH (20:16)
[2018-02-05] MEDS: Gabapentin CAP(*) 400 MG PO SCH (20:18)
[2018-02-05] MEDS: traZODone TAB* 100 MG PO PRN (20:19)
[2018-02-06] MEDS: Levothyroxine TAB* 100 MCG TAB PO SCH (05:29)
[2018-02-06 06:10] LABS: ABS Basophils 0 10^3/ul (0-0.2); ABS Eosinophils 0 10^3/ul (0-0.6); ABS Lymphocytes 1.9 10^3/ul (1.0-4.8); ABS Monocytes 0.7 10^3/ul (0-0.8); ABS Neutrophils 10.9 10^3/ul (1.5-7.7); ABS Nucleated RBC 0 10^3/ul; Eosinophil % 0 %; Hematocrit 30 % (35-47); Hemoglobin 9.4 g/dl (12.0-16.0); Lymphocyte % 14.1 %; Mean Corpuscular HGB Conc 31 g/dl (31-36); Mean Corpuscular Hemoglobin 28 pg (27-31); Mean Corpuscular Volume 91 fL (80-97); Mean Platelet Volume 6.8 fL (7.4-10.4); Nucleated Red Blood Cells % 0; Platelet Count 292 10^3/ul (150-450); Red Blood Count 3.29 10^6/ul (4.00-5.40); Red Cell Distribution Width 15 % (10.5-15); White Blood Count 13.5 10^3/ul (3.5-10.8)
[2018-02-06 06:25] LABS: EGFR Non-African American 49.7 (>60)
[2018-02-06] MEDS: Mometasone/Formoter 200/5 MDI INH SCH ×2 (08:01→20:05)
[2018-02-06] MEDS: Omeprazole CAP* 20 MG PO SCH (08:54)
[2018-02-06] MEDS: Gabapentin CAP(*) 100 MG PO SCH (08:54)
[2018-02-06] MEDS: predniSONE TAB* 20 MG PO SCH (08:55)
[2018-02-06] MEDS: Citalopram TAB* 40 MG PO SCH (08:55)
[2018-02-06] MEDS: Aspirin EC TAB* 81 MG TAB.EC PO SCH (08:55)
[2018-02-06] MEDS: Diltiazem CD CAP* 180 MG PO SCH (08:56)
[2018-02-06] MEDS: Metoprolol Tartrate TAB* 25 MG PO SCH ×2 (08:56→21:11)
[2018-02-06] MEDS: Oxybutynin TAB* 5 MG PO SCH ×2 (08:56→21:12)
[2018-02-06] MEDS: Docusate CAP* 100 MG PO SCH ×2 (13:20→21:11)
[2018-02-06] MEDS: Polyethylene Glycol 3350* 17 GM PACKET PO SCH (13:21)
--- NOTE | 2018-02-06 13:50 | PN ---
Subjective Date of Service: 02/06/18 Interval History: Productive cough of green sputum. More SOB than baseline. Has not had a BM since Thursday02/01/18. Often can go a week at a time at home. Uses colace daily. Lives with Daughter Rolanda Gill and 2 grandchildren. 3-4 pillow orthopnea at home. Requesting a hospital bed. Prefers to follow with [facility] on discharge. Never febrile at home. Objective Active Medications: Acetaminophen (Tylenol Tab*) 650 mg PO Q4H PRN PRN Reason: FEVER/PAIN Albuterol (Ventolin 2.5 Mg/3 Ml Neb.Rula*) 2.5 mg INH Q2H PRN PRN Reason: SOB/WHEEZING Last Admin: 02/06/18 06:10 Dose: 2.5 mg Albuterol/Ipratropium (Duoneb (Albuterol 2.5 Mg/Ipratropium 0.5 Mg)) 1 neb INH Q6H PRN PRN Reason: WHEEZING Last Admin: 02/05/18 19:50 Dose: 1 neb Aspirin (Aspirin Ec Tab*) 81 mg PO DAILY [facility] Last Admin: 02/06/18 08:55 Dose: 81 mg Atorvastatin Calcium (Lipitor*) 10 mg PO 1700 [facility] Last Admin: 02/05/18 15:44 Dose: 10 mg Citalopram Hydrobromide (Celexa Tab*) 40 mg PO DAILY [facility] Last Admin: 02/06/18 08:55 Dose: 40 mg Cyclobenzaprine HCl (Flexeril Tab*) 10 mg PO BID PRN PRN Reason: SPASMS Diltiazem HCl (Cardizem Cd Cap*) 180 mg PO DAILY [facility] Last Admin: 02/06/18 08:56 Dose: 180 mg Docusate Sodium (Colace Cap*) 100 mg PO BID [facility] Last Admin: 02/06/18 13:20 Dose: 100 mg Gabapentin (Neurontin Cap(*)) 100 mg PO QAM [facility] Last Admin: 02/06/18 08:54 Dose: 100 mg Gabapentin (Neurontin Cap(*)) 400 mg PO BEDTIME [facility] Last Admin: 02/05/18 20:18 Dose: 400 mg Ceftriaxone Sodium 1 gm/ (Sodium Chloride) 50 mls @ 200 mls/hr IVPB Q24H [facility] Last Admin: 02/05/18 18:17 Dose: 200 mls/hr Azithromycin 500 mg/ Sodium (Chloride) 250 mls @ 250 mls/hr IVPB Q24H [facility] Last Admin: 02/05/18 20:16 Dose: 250 mls/hr Levothyroxine Sodium (Synthroid Tab*) 100 mcg PO DAILY@0600 [facility] Last Admin: 02/06/18 05:29 Dose: 100 mcg Metoprolol Tartrate (Lopressor Tab*) 25 mg PO BID [facility] Last Admin: 02/06/18 08:56 Dose: 25 mg Mometasone Furoate/Formoterol Fumar (Dulera 200/5 Mdi*) 2 puff INH BID [facility] Last Admin: 02/06/18 08:01 Dose: 2 puff Omeprazole (Prilosec Cap*) 20 mg PO DAILY@0730 [facility] Last Admin: 02/06/18 08:54 Dose: 20 mg Ondansetron HCl (Zofran Inj*) 4 mg IV Q6H PRN PRN Reason: NAUSEA Oxybutynin Chloride (Ditropan Tab*) 5 mg PO BID [facility] Last Admin: 02/06/18 08:56 Dose: 5 mg Polyethylene Glycol/Electrolytes (Miralax*) 17 gm PO DAILY [facility] Last Admin: 02/06/18 13:21 Dose: 17 gm Prednisone (Deltasone Tab*) 40 mg PO DAILY [facility] Last Admin: 02/06/18 08:55 Dose: 40 mg Rivaroxaban (Xarelto(*)) 20 mg PO 1800 [facility] Last Admin: 02/05/18 18:17 Dose: 20 mg Trazodone HCl (Desyrel Tab*) 200 mg PO BEDTIME PRN PRN Reason: SLEEP Last Admin: 02/05/18 20:19 Dose: 200 mg Vital Signs - 8 hr 02/06/18 02/06/18 02/06/18 06:12 07:24 07:53 Temperature 97.2 F Pulse Rate 62 75 Respiratory 20 16 18 Rate Blood Pressure 110/62 (mmHg) O2 Sat by Pulse 95 97 Oximetry 02/06/18 02/06/18 02/06/18 07:58 08:54 10:55 Temperature 97.5 F Pulse Rate 56 72 Respiratory 18 18 Rate Blood Pressure 113/91 (mmHg) O2 Sat by Pulse 98 Oximetry 02/06/18 11:30 Temperature Pulse Rate Respiratory 20 Rate Blood Pressure (mmHg) O2 Sat by Pulse Oximetry Oxygen Devices in Use Now: Nasal Cannula Appearance: NAD, chronically ill appearing. Eyes: No Scleral Icterus Ears/Nose/Mouth/Throat: - - NL lips, some missing teeth Respiratory: - - distant lung sounds bilterally with expiratory wheeze. no rales or rhonchi. Cardiovascular: NL Sounds; No Murmurs; No JVD, RRR Abdominal: NL Sounds; No Tenderness; No Distention, No Hepatosplenomegaly, - - morbidly obese. Extremities: - - trace edema right leg. Skin: No Rash or Ulcers Neurological: Alert and Oriented x 3, NL Sensation, NL Muscle Strength and Tone Nutrition: Taking PO's Result Diagrams: 02/06/18 05:51 02/06/18 05:51 Additional Lab and Data: Laboratory Results - last 24 hr 02/06/18 02/06/18 05:51 05:51 WBC 13.5 H RBC 3.29 L Hgb 9.4 L Hct 30 L MCV 91 MCH 28 MCHC 31 RDW 15 Plt Count 292 MPV 6.8 L Neut % (Auto) 80.5 Lymph % (Auto) 14.1 Gem % (Auto) 5.4 Eos % (Auto) 0 Baso % (Auto) 0 Absolute Neuts (auto) 10.9 H Absolute Lymphs (auto) 1.9 Absolute Monos (auto) 0.7 Absolute Eos (auto) 0 Absolute Basos (auto) 0 Absolute Nucleated RBC 0 Nucleated RBC % 0 Sodium 143 Potassium 4.7 Chloride 106 Carbon Dioxide 33 H Anion Gap 4 BUN 23 Creatinine 1.08 H Est GFR ( Amer) 60.2 Est GFR (Non-Af Amer) 49.7 BUN/Creatinine Ratio 21.3 H Glucose 130 H Calcium 9.1 Microbiology and Other Data: Microbiology 02/03/18 23:00 Sputum Gram Stain - Final 02/03/18 23:00 Sputum Sputum Culture - Final Branhamella Catarrhalis Normal Alicja 02/04/18 03:00 Blood Venous Aerobic Blood Culture - Preliminary No Growth Day 2 02/04/18 03:00 Blood Venous Anaerobic Blood Culture - Preliminary No Growth Day 2 02/03/18 22:57 Blood Venous Aerobic Blood Culture - Preliminary No Growth Day 2 02/03/18 22:57 Blood Venous Anaerobic Blood Culture - Preliminary No Growth Day 2 02/03/18 21:31 Urine Urine Culture - Final No Growth (<1,000 CFU/mL) 02/03/18 21:31 Urine Legionella Urinary Antigen - Final Negative Legionella Antigen 02/03/18 21:31 Urine Streptococcus pneumoniae Ag Screen - Final Negative S. pneumo Antigen 02/03/18 20:40 Nasal Nasal Screen MRSA (PCR) - Final Mrsa Not Detected 02/03/18 18:04 Nasopharyngeal Influenza Types A,B Antigen - Final Specimen received for Influenza A/B Molecular testing Assess/Plan/Problems-Billing Assessment: 72 yo female PMH h/o right lower lobe lung cancer s/p radiation, renal cancer (s /p nephrectomy), COPD 2.5L 02 dependent, transient post op a. fib(cardioverted post nephrectomy several years ago) presented with severe SOB/hypoxia with new A. flutter. COPD exacerbation - Patient Problems (1) Atrial flutter with rapid ventricular response Current Visit: Yes Status: Acute Code(s): I48.92 - UNSPECIFIED ATRIAL FLUTTER SNOMED Code(s): 5499158 Comment: rate controlled on Cardizem 180 CD(new med) and metoprolol tartrate 25mg po BID(home med) Echo shows EF 55% CArdiology consult appreciated, agree with Cardizem CD and Xarelto. Rate controlled. wants to f/u with [facility] as outpatient. (2) COPD (chronic obstructive pulmonary disease) Current Visit: No Status: Chronic Code(s): J44.9 - CHRONIC OBSTRUCTIVE PULMONARY DISEASE, UNSPECIFIED SNOMED Code(s): 06551815 Comment: in mild exacerbation. Continue Dulera (formulary substitute), Start Spiriva (on Tudorza at home) continue Prednisone and abx in setting of likely viral URI in family. nebs prn home meds are stiloto and turdoze and ventolin prn. (3) Anemia Current Visit: Yes Status: Acute Code(s): D64.9 - ANEMIA, UNSPECIFIED SNOMED Code(s): 058112728 Comment: normocytic HB at baseline 10 stable (4) Swallowing dysfunction Current Visit: Yes Status: Acute Comment: RN noted pt to cough with food. Speech recommended more gravy with food but regular consistency. (5) DVT prophylaxis Current Visit: No Status: Acute Code(s): BIC7350 - SNOMED Code(s): 650684597 Comment: michael (6) GERD (gastroesophageal reflux disease) Current Visit: No Status: Chronic Code(s): K21.9 - GASTRO-ESOPHAGEAL REFLUX DISEASE WITHOUT ESOPHAGITIS SNOMED Code(s): 499057228 Comment: continue omeprazole (7) HLD (hyperlipidemia) Current Visit: No Status: Chronic Code(s): E78.5 - HYPERLIPIDEMIA, UNSPECIFIED SNOMED Code(s): 91567564 Comment: continue lipitor 10mg (8) HTN (hypertension) Current Visit: No Status: Chronic Code(s): I10 - ESSENTIAL (PRIMARY) HYPERTENSION SNOMED Code(s): 60365997 Comment: toprol 25mb BID(home) new dilt 180 held home amlodipine 2.5 well controlled. (9) Hx of cancer of lung Current Visit: No Status: Chronic Code(s): Z85.118 - PERSONAL HISTORY OF MALIGNANT NEOPLASM OF BRONCHUS AND LUNG SNOMED Code(s): 211327920 (10) Hx of renal cell cancer Current Visit: No Status: Chronic Code(s): Z85.528 - PERSONAL HISTORY OF OTHER MALIGNANT NEOPLASM OF KIDNEY SNOMED Code(s): 394234388 (11) Hx of unilateral nephrectomy Current Visit: No Status: Chronic Code(s): Z90.5 - ACQUIRED ABSENCE OF KIDNEY SNOMED Code(s): 04045449386613 (12) Hypothyroidism Current Visit: No Status: Chronic Code(s): E03.9 - HYPOTHYROIDISM, UNSPECIFIED SNOMED Code(s): 27805361 Comment: TSH 0.7, continue home dose of synthroid. 100mcg daily (13) Patient is full code Current Visit: No Status: Acute Code(s): Z78.9 - OTHER SPECIFIED HEALTH STATUS SNOMED Code(s): 590272212 Status and Disposition: medicine inpatient, Pt ordered.
[2018-02-06] MEDS ORDERED: Spiriva Inhaler DEVICE* 1 EACH DEVICE SCH (14:00)
--- NOTE | 2018-02-06 14:41 | PN ---
Hospitalist Progress Note Date of Service: 02/06/18 Conducted a face to face visit with Mrs Kassy Mcdonald on 02/06/18. Patient has medical conditions that require the body to be positioned in a way that an ordinary bed can not provide, namely the head of the bed elevated given her 3-4 pillow orthopnea and chronic hypoxic respiratory failure secondary to severe COPD, obesity hypoventilation and diastolic congestive heart failure. Billy Eckert
[2018-02-06] MEDS: Tiotropium CAP.INH* CAP.INH/18 MCG (USE ORDER SET !) INH SCH (14:48)
[2018-02-06] MEDS: Rivaroxaban TAB(*) 20 MG TAB PO SCH (17:52)
[2018-02-06] MEDS: cefTRIAXone(*) 1 GM in NS 0.9% 50 ML* 50 ML IVPB SCH (17:52)
[2018-02-06] MEDS: Atorvastatin* 10 MG TAB PO SCH (17:52)
[2018-02-06] MEDS ORDERED: Magnesium CITRATE* 300 ML BTL PO ONE (18:00)
[2018-02-06] MEDS: Azithromycin IV(*) 500 MG in NS 0.9% 250 ML* 250 ML IVPB SCH (19:56)
[2018-02-06] MEDS: Albuterol/Ipratropium NEB.SOL* Albuterol 2.5 MG/Ipratropium 0.5 MG 3 ML INH PRN (20:05)
[2018-02-06] MEDS: Diltiazem TAB* 30 MG PO SCH (21:11)
[2018-02-06] MEDS: Gabapentin CAP(*) 400 MG PO SCH (21:12)
[2018-02-06] MEDS: traZODone TAB* 100 MG PO PRN (21:12)
[2018-02-07] MEDS: Diltiazem TAB* 30 MG PO SCH ×2 (03:11→08:24)
[2018-02-07] MEDS: Levothyroxine TAB* 100 MCG TAB PO SCH (05:27)
[2018-02-07] MEDS: Mometasone/Formoter 200/5 MDI INH SCH (07:51)
[2018-02-07] MEDS: Tiotropium CAP.INH* CAP.INH/18 MCG (USE ORDER SET !) INH SCH (07:51)
[2018-02-07] MEDS: Citalopram TAB* 40 MG PO SCH (08:20)
[2018-02-07] MEDS: Docusate CAP* 100 MG PO SCH (08:20)
[2018-02-07] MEDS: Diltiazem CD CAP* 180 MG PO SCH (08:21)
[2018-02-07] MEDS: Omeprazole CAP* 20 MG PO SCH (08:21)
[2018-02-07] MEDS: predniSONE TAB* 20 MG PO SCH (08:22)
[2018-02-07] MEDS: Oxybutynin TAB* 5 MG PO SCH (08:22)
[2018-02-07] MEDS: Metoprolol Tartrate TAB* 25 MG PO SCH (08:23)
[2018-02-07] MEDS: Gabapentin CAP(*) 100 MG PO SCH (08:24)
[2018-02-07] MEDS: Aspirin EC TAB* 81 MG TAB.EC PO SCH (08:24)
[2018-02-07] MEDS: Polyethylene Glycol 3350* 17 GM PACKET PO SCH (08:25)
[2018-02-07] MEDS: Albuterol/Ipratropium NEB.SOL* Albuterol 2.5 MG/Ipratropium 0.5 MG 3 ML INH PRN (10:06)
[2018-02-07 11:47] VITALS: BP 94/51
--- NOTE | 2018-02-08 05:29 | DS ---
CC: Dr. Owen Franco, [facility] * DISCHARGE SUMMARY: DATE OF ADMISSION: 02/03/18 DATE OF DISCHARGE: 02/07/18 ADMITTING PROVIDER: Sebastian Guillen NP PRIMARY CARE PROVIDERS: Caridad Alvarado NP and Viral Brady MD ATTENDING PHYSICIAN ON THE DAY OF DISCHARGE: Billy Eckert MD CONSULTING BUILDING RENTAL MANAGER: Dr. Ashkan Champion. Dr. Owen Franco, [facility], Plans to be establishing care in future. CHIEF COMPLAINT: Shortness of breath. PRINCIPAL DIAGNOSES: 1. Atrial flutter (new; previous history of proximal atrial fibrillation). 2. Chronic obstructive pulmonary disease exacerbation. 3. Acute on chronic hypoxic respiratory failure. 4. Concern for dysphagia to solid foods on occasion, though not with Speech and Language Pathology evaluation. HISTORY OF PRESENT ILLNESS AND HOSPITAL COURSE: Kassy Mcdonald is a 72-year-old female with past medical history of renal carcinoma, status post right nephrectomy; lung cancer, status post radiation; hypertension; hyperlipidemia; chronic hypoxic respiratory failure secondary to COPD (on 2.5 L O2); hypothyroidism; depression; paroxysmal atrial fibrillation, not on anticoagulation; CAD status post [place], who presented with symptoms of upper respiratory infection and shortness of breath. Please see H&P of Sebastian Guillen for full details. She complained of pressure behind her eyes when leaning forward, rhinorrhea, sinus congestion, coughing with mucopurulent sputum. She denied chest pain, but did have increased shortness of breath and dyspnea on exertion. Grandchildren also were sick with cold symptoms. She denied fever or chills, but presented when was profoundly short of breath with ambulation of 30 feet. Her family noticed what looks like blue cyanotic lips and presented to the EMS to [facility] Emergency Room and was found to be in aflutter with rate of 150. She was rate controlled with Cardizem and started on Xarelto. Dr. Ashkan Champion of Cardiology was consulted and recommended continued anticoagulation and rate control. She was on diltiazem 180 mg extended release with good effect, although did on occasion have tachycardia with ambulation. She should establish care with Cardiology as an outpatient, preferring to stay within the [facility] system and referral to Dr. Owen Franco is being recommended. Of note, she had history of paroxysmal atrial fibrillation documented in the chart, not clear any if any flutter before and was not on anticoagulation prior to admission. She was treated for a COPD exacerbation in the setting of recent likely viral insult, but also was noted by RNs to have coughing fits when eating solid foods on different occasion. She had a Speech and Language Pathology evaluation by Suresh Gallegos on 02/05/18, who did not witness any episodes of aspiration, but recommended sitting fully upright, thoroughly chewing her food. He assessed her as having minimal oropharyngeal dysphagia, mildly effortful swallow of liquid. His final recommendation was regular consistency with extra sauces, gravy, and thin liquids with straws were okay. She should have continued evaluation as an outpatient. She had a sputum culture, which grew Branhamella catarrhalis and was initially treated with ceftriaxone and azithromycin for the 4 days of admission and is being discharged on 3 more days of Augmentin. She initially had no leukocytosis, but in the setting of steroid given for COPD exacerbation, she did have a spike up to 15.2 on and 13.5 on 02/06/18. She should have repeat CBC done as an outpatient. Her MRSA nares were negative. Strep, legionella antigen and legionella urine antigens were negative. Blood cultures were negative x3 days. Influenza was negative. She had a D-dimer of 316, BNP of 116. She worked with Physical Therapy, and on 02/06/18 was thought to be at her baseline functional mobility with recommendation to discharge home. She had a transthoracic echocardiogram on 02/03/18, which demonstrated ejection fraction of 50% to 55%, assessment of diastolic functionality was non-diagnostic. Study quality was poor given history of COPD, trace tricuspid regurgitation. TSH was 0.72. DISCHARGE MEDICATIONS: 1. Atorvastatin 10 mg p.o. daily. 2. Flexeril 10 mg p.o. b.i.d. p.r.n. 3. Diltiazem 100 mg p.o. daily (new). 4. Gabapentin 400 mg p.o. q.p.m. and 100 mg p.o. q.a.m. 5. Synthroid 100 mcg p.o. daily. 6. Metoprolol tartrate 25 mg p.o. b.i.d. 7. Omeprazole 20 mg p.o. daily. 8. Oxybutynin 5 mg p.o. b.i.d. 9. Prednisone 20 mg tabs to be taken 40 mg x4 days then 20mg x 4days (total of 12 tabs, new). 10. Xarelto 20 mg p.o. daily (new). 11. Trazodone 200 mg p.o. at bedtime p.r.n. 12. Tylenol 650 mg p.o. q.4 hours p.r.n. 13. Tudorza Pressair 1 puff inhaled b.i.d. 14. Albuterol 1 puff inhaled four times a day p.r.n. 15. Amoxicillin 875 mg p.o. b.i.d. 6 tabs (new). 16. Citalopram (Celexa) 40 mg p.o. daily. 17. Nitroglycerin 0.4 mg sublingual q.5 minutes p.r.n. 18. Stiolto Respimat inhaled daily (tiotropium bromide/olodaterol). DISCHARGE DIET: Per Speech and Language Pathology regular consistency with extra sauces and gravies, thin liquids okay, straw is okay. However, there is some still concern for choking and coughing events as witnessed by nursing and recommend potential pureed or mechanically ground diet until can be followed up reevaluation as an outpatient. ACTIVITY: No restrictions. FOLLOWUP: Please follow up with Caridad Alvarado NP and/or Dr. Viral Brady within 4 to 7 days of discharge. She should be seen by [facility] associate manager, potentially Dr. Owen Franco or another within 2 to 4 weeks of discharge. She should have a repeat CBC checked. TIME SPENT ON DISCHARGE: Forty-five minutes, greater than half of which being at bedside evaluating the patient and educating the patient on prognosis, treatment options. [id number]/CPS #: [id number] [facility]
== END 2018-02-07 15:15 | disposition home or self-care (01) | DRG 308 ==
LOC: ED 16:43 → ICU 19:21 → MEDTELE 02-04 06:06
PROVIDERS: ADMIT Internal Medicine; ATTEND Internal Medicine
DX: I48.92 Unspecified atrial flutter (principal); J96.21 Acute and chronic respiratory failure with hypoxia; J18.9 Pneumonia, unspecified organism; J44.1 Chronic obstructive pulmonary disease with (acute) exacerbation; Z68.41 Body mass index [BMI] 40.0-44.9, adult; J44.0 Chronic obstructive pulmonary disease with (acute) lower respiratory infection; I50.32 Chronic diastolic (congestive) heart failure; E66.2 Morbid (severe) obesity with alveolar hypoventilation; I11.0 Hypertensive heart disease with heart failure; Z99.81 Dependence on supplemental oxygen; R13.12 Dysphagia, oropharyngeal phase; I48.0 Paroxysmal atrial fibrillation; D64.9 Anemia, unspecified; I25.10 Atherosclerotic heart disease of native coronary artery without angina pectoris; E78.5 Hyperlipidemia, unspecified; E03.9 Hypothyroidism, unspecified; F32.9 Major depressive disorder, single episode, unspecified; K21.9 Gastro-esophageal reflux disease without esophagitis; Z85.528 Personal history of other malignant neoplasm of kidney; Z90.5 Acquired absence of kidney; I25.2 Old myocardial infarction; Z85.118 Personal history of other malignant neoplasm of bronchus and lung; Z79.1 Long term (current) use of non-steroidal anti-inflammatories (NSAID); Z79.899 Other long term (current) drug therapy; Z88.8 Allergy status to other drugs, medicaments and biological substances; Z91.048 Other nonmedicinal substance allergy status; Z80.52 Family history of malignant neoplasm of bladder; Z81.1 Family history of alcohol abuse and dependence; Z87.891 Personal history of nicotine dependence; Z82.49 Family history of ischemic heart disease and other diseases of the circulatory system
CPT/HCPCS: 36415; 71045; 80048; 80053; 81003; 81015; 82272; 83605; 83735; 83880; 84443; 84484; 85025; 85379; 85610; 85730; 87040; 87070; 87077; 87086; 87185; 87205; 87641; 87899; 93005; 93306; 94640; 99284; A9270-GY; C8929; G8978-GP-CK; G8979-GP-CK; G8980-GP-CK; J0456; J0696; J1644; J1650; J2930; J7512

== ENCOUNTER 2018-03-03 15:37 | Emergency (ER) | payer MEDICARE, OTHER ==
[2018-03-03 15:59] VITALS: BP 98/64
--- NOTE | 2018-03-03 17:33 | UC ---
Skin Complaint HPI - HPI Summary HPI Summary: 72-year-old female with complex medical history presents with complaints of redness, tenderness, and swelling to her left lower leg after accidentally hitting her leg on her walker 2 days ago. States she was seen by her visiting nurse today who recommended that she come in for evaluation. She has noted to superficial abrasions to her mid anterior leg that has developed surrounding redness and tenderness over the past 2 days. She has noticed some increased edema in the left lower extremity as well as some weeping of clear fluid from the wounds on her leg. Denies fever, chills, chest pain, palpitations, shortness of breath, or calf pain. - History of Current Complaint Chief Complaint: UCLowerExtremity Time Seen by Provider: 03/03/18 17:24 Stated Complaint: infection OF THE LEG Hx Obtained From: Patient Hx Last Menstrual Period: hysterectomy Pain Intensity: 7 - Allergy/Home Medications Allergies/Adverse Reactions: Allergies Allergy/AdvReac Type Severity Reaction Status Date / Time Adhesive Tape [Plastic Tape] Allergy Mild Rash Verified 03/03/18 15:59 latex Allergy Unknown Unknown Verified 03/03/18 15:59 Reaction Details pregabalin Allergy Altered Verified 03/03/18 15:59 Mental Status Monitor Stickers Allergy Mild Rash Uncoded 03/03/18 15:59 PMH/Surg Hx/FS Hx/Imm Hx Endocrine History: Diabetes, Hypothyroidism, Dyslipidemia Cardiovascular History: Cardiac Disease, Hypertension, Atrial Fibrillation Respiratory History: COPD GI/ History: Gastroesophageal Reflux Psychological History: Depression Cancer History: Lung Cancer, Other - Renal cancer, aplastic anemia Other History Of: Negative For: Anticoagulant Therapy - Surgical History Surgical History: Yes Surgery Procedure, Year, and Place: HYSTERECTOMY, GALLBLADDER 2012, CARDIAC CATH 2012 (NO STENTS), RIGHT NEPHRECTOMY 2012, tonsillectomy - Family History Known Family History: Positive: Unknown, Cardiac Disease, Hypertension Negative: Diabetes - Social History Alcohol Use: None Substance Use Type: None Smoking Status (MU): Unknown if Ever Smoked Have You Smoked in the Last Year: No When Did the Patient Quit Smoking/Using Tobacco: quit 3 years ago - Immunization History Most Recent Influenza Vaccination: FALL 2013 Most Recent Tetanus Shot: UNKNOWN Most Recent Pneumonia Vaccination: UP TO DATE Review of Systems All Other Systems Reviewed And Are Negative: Yes Constitutional: Negative: Fever, Chills Skin: Positive: Other - See HPI Respiratory: Negative: Shortness Of Breath, Cough Cardiovascular: Negative: Palpitations, Chest Pain Gastrointestinal: Positive: Negative Genitourinary: Positive: Negative Motor: Negative: Weakness Neurovascular: Negative: Decreased Sensation Musculoskeletal: Positive: Edema. Negative: Arthralgia, Calf Tenderness Neurological: Positive: Negative Is Patient Immunocompromised?: No Physical Exam - Summary Physical Exam Summary: GENERAL APPEARANCE: Chronically ill-appearing, alert and cooperative adult female who appears to be in no acute distress. CARDIAC: Normal S1 and S2. No S3, S4 or murmurs. Rhythm is regular. Extremities are warm and well perfused. Mild non-pitting bilateral edema of the lower extremities, left slight worse than right. Peripheral pulses intact. Capillary refill is less than 2 seconds. LUNGS: Mild bilateral wheezing noted. Patient wearing oxygen via NC. ABDOMEN: Positive bowel sounds. Soft, nondistended, nontender. No guarding or rebound. No masses or hepatosplenomegally. MUSKULOSKELETAL: ROM intact to all extremities. No joint erythema or tenderness. Normal muscular development. Left calf supple without tenderness. BACK: Examination of the spine reveals normal gait and posture, no spinal deformity or tenderness, decreased range of motion or muscular spasm. NEUROLOGICAL: Sensation intact. SKIN: Rubor of venous insufficiency noted to bilateral lower extremities. There are 2 small, less than 0.5 cm superficial abrasions to the mid anterior left lower leg with an area of surrounding erythema approximately 4-5 cm with mild induration, tenderness, and increased warmth. No drainage noted. Triage Information Reviewed: Yes Vital Signs: Initial Vital Signs Temp 97.1 F 03/03/18 15:53 Pulse 83 03/03/18 15:53 Resp 20 03/03/18 15:53 BP 98/64 03/03/18 15:53 Pulse Ox 98 03/03/18 15:53 Vital Signs Reviewed: Yes Course/Dx - Course Course Of Treatment: 72-year-old female with complex medical history presents with complaints of redness, tenderness, and swelling to her left lower leg after accidentally hitting her leg on her walker 2 days ago. States she was seen by her visiting nurse today who recommended that she come in for evaluation. She has noted to superficial abrasions to her mid anterior leg that has developed surrounding redness and tenderness over the past 2 days. She has noticed some increased edema in the left lower extremity as well as some weeping of clear fluid from the wounds on her leg. Denies fever, chills, chest pain, palpitations, shortness of breath, or calf pain. Exam reveals a chronically ill-appearing female in no acute distress. She does have some mild nonpitting edema to bilateral lower extremities with the left being slightly worse than the right. Rubor of venous insufficiency noted to bilateral lower extremities. There are 2 small, less than 0.5 cm superficial abrasions to the mid anterior left lower leg with an area of surrounding erythema approximately 4 -5 cm with mild induration, tenderness, and increased warmth. No drainage was noted. Will treat her for cellulitis. She has been prescribed Bactrim DS 1 tab twice a day 7 days. She states that her visiting nurse will be coming again tomorrow and that she has an appointment scheduled with her primary care provider next week. She is encouraged to keep that appointment for recheck of her wounds. Warning symptoms were reviewed with the patient. She verbalizes understanding and agrees with plan of care. - Differential Diagnoses - Skin Complaint Differential Diagnoses: Abscess, Cellulitis, MRSA, Other - venous stasis, DVT - Diagnoses Provider Diagnosis: Cellulitis of left lower leg Discharge - Sign-Out/Discharge Documenting (check all that apply): Patient Departure All imaging exams completed and their final reports reviewed: No Studies - Discharge Plan Condition: Stable Disposition: HOME Prescriptions: Sulfamethox/Trimethoprim DS* [Bactrim DS 800/160 TAB*] 1 tab PO BID #14 tab Patient Education Materials: Cellulitis (ED) Referrals: Caridad Alvarado NP [Primary Care Provider] - (Next week as scheduled.) Additional Instructions: The redness of your leg appears to be a cellulitis (skin infection) likely from the wounds you sustained when you accidentally hit your leg the other day. Start Bactrim DS 1 tablet twice a day for 7 days. Keep your appointment with your primary care provider as scheduled next week for recheck of leg. Seek immediate medical attention in the emergency room if you develop fever greater than 100.5 F, have increased pain, redness, swelling of the leg, chest pain, shortness of breath, or any worsening of symptoms. - Billing Disposition and Condition Condition: STABLE Disposition: Home
== END 2018-03-03 17:50 | disposition home or self-care (01) ==
LOC: UCEAST 15:37
DX: L03.116 Cellulitis of left lower limb (principal); E11.9 Type 2 diabetes mellitus without complications; J44.9 Chronic obstructive pulmonary disease, unspecified; I10 Essential (primary) hypertension; Z88.8 Allergy status to other drugs, medicaments and biological substances; Z91.040 Latex allergy status; Z91.048 Other nonmedicinal substance allergy status
CPT/HCPCS: 99212; G0463

== ENCOUNTER 2018-03-11 16:52 | Emergency (ER) | payer MEDICARE ==
[2018-03-11] MEDS ORDERED: NS 0.9% 1000 ML** 1,000 ML IV ONE (17:07)
--- NOTE | 2018-03-11 17:13 | ED ---
Lower Extremity - HPI Summary HPI Summary: Patient is a 72 y/o F presenting to ED with complaints of LE weakness, feet swelling, and fall at 0430 today. She states that as she was walking, her legs began to shake/spasm and then she fell. Patient states that she has had tremors for "a while". Shaking has been worsening. Swelling has been present for the past few months. No SOB at present, no palpitations reported. PMHx of afib, aflutter, COPD. She notes that she does not experience palpitations when she is in afib. Patient has inhaler, nebulizer, and home o2, 3 L at present. Patient notes that she had some episodes of difficulty breathing in recent past weeks and that her home o2 was increased to 3 L as a result. Patient is on blood thinner, states that she takes Xarelto, Cardizem, Gabapentin, and cough medications. On triage, pain is denied. Nothing is noted to aggravate/alleviate Sx. Home medications, allergies, and nurse's note are reviewed. - History of Current Complaint Chief Complaint: EDExtremityLower Stated Complaint: BOTH LEG PAIN Time Seen by Provider: 03/11/18 17:06 Hx Obtained From: Patient Hx Last Menstrual Period: hysterectomy Mechanism Of Injury: Fall From A Standing Position Onset/Duration: Still Present - swelling, weakness Severity Currently: None - pain denied Pain Intensity: 0 Pain Scale Used: 0-10 Numeric - 0/10 Timing: Constant - swelling, weakness, Lasting Weeks - tremors, swelling have been present for at least a month Location: Is Discrete @ - FEET Associated Signs And Symptoms: Positive: Swelling - FEET, Weakness - BLE, Other - fall, tremors, no SOB, no palpitations Aggravating Factor(s): Nothing Alleviating Factor(s): Nothing - Allergies/Home Medications Allergies/Adverse Reactions: Allergies Allergy/AdvReac Type Severity Reaction Status Date / Time Adhesive Tape [Plastic Tape] Allergy Mild Rash Verified 03/03/18 15:59 latex Allergy Unknown Unknown Verified 03/03/18 15:59 Reaction Details pregabalin Allergy Altered Verified 03/03/18 15:59 Mental Status Monitor Stickers Allergy Mild Rash Uncoded 03/03/18 15:59 PMH/Surg Hx/FS Hx/Imm Hx Endocrine/Hematology History: Reports: Hx Thyroid Disease Denies: Hx Anticoagulant Therapy, Hx Blood Transfusions, Hx Diabetes, Other Endocrine/Hematological Disorders Cardiovascular History: Reports: Hx Angina, Hx Atrial Fibrillation - well controlled and no meds per pt and daughter, Hx Coronary Artery Disease, Hx Hypercholesterolemia, Hx Hypertension - medicated, Hx Myocardial Infarction, Hx Syncope, Other Cardiovascular Problems/Disorders - HX OF LUNG CA Denies: Hx Congestive Heart Failure, Hx Pacemaker/ICD, Hx Valvular Heart Disease Respiratory History: Reports: Hx Chronic Obstructive Pulmonary Disease (COPD), Hx Lung Cancer, Hx Pleural Effusion, Hx Seasonal Allergies, Hx Sleep Apnea - havent had sleep study, Other Respiratory Problems/Disorders - LUNG CA Denies: Hx Asthma, Hx Pneumonia GI History: Reports: Hx Gall Bladder Disease, Hx Gastroesophageal Reflux Disease Denies: Other GI Disorders - colonoscopy found polyps benign 2011 History: Reports: Hx Renal Disease, Other Problems/Disorders - Right Nephrectomy. 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, Other Musculoskeletal History - back pain when weather is damp Sensory History: Reports: Hx Contacts or Glasses Denies: Hx Hearing Aid, Other Sensory Impairments Opthamlomology History: Reports: Hx Contacts or Glasses Denies: Other Sensory Impairments Neurological History: Denies: Hx Dementia, Hx Seizures, Other Neuro Impairments/Disorders Psychiatric History: Reports: Hx Anxiety - ON MEDICATION, Hx Depression, Hx Panic Disorder Denies: Hx Eating Disorder, Hx Suicide Attempt, Hx of Violent Episodes Against Others, Hx Substance Abuse, Other Psychiatric Issues/Disorders - Cancer History Cancer Type, Location and Year: Lung Cancer, treated w/ radiation, 2012. RENAL CANCER W/RIGHT NEPHRECTOMY Hx Chemotherapy: No Hx Radiation Therapy: Yes - HX OF LUNG AND KIDNEY CA - Surgical History Surgery Procedure, Year, and Place: HYSTERECTOMY, GALLBLADDER 2012, CARDIAC CATH 2012 (NO STENTS), RIGHT NEPHRECTOMY 2012, tonsillectomy Hx Anesthesia Reactions: No Infectious Disease History: No Infectious Disease History: Reports: Hx Shingles Denies: Hx Hepatitis, Hx Human Immunodeficiency Virus (HIV), Hx of Known/ Suspected MRSA, History Other Infectious Disease, Traveled Outside the [place] in Last 30 Days - Family History Known Family History: Positive: Cardiac Disease, Hypertension Negative: Diabetes - Social History Alcohol Use: None Substance Use Type: Reports: None Hx Tobacco Use: Yes Smoking Status (MU): Unknown if Ever Smoked Have You Smoked in the Last Year: No Review of Systems Positive: Other - POSITIVE - TREMORS, FALL Negative: Palpitations Negative: Shortness Of Breath Positive: Edema - feet, Other - POSITIVE - BLE WEAKNESS All Other Systems Reviewed And Are Negative: Yes Physical Exam - Summary Physical Exam Summary: Appearance: chronically ill-appearing, no pain distress, obese Skin: warm, dry, reflects adequate perfusion; bruise at right lateral low chest wall and flank with tenderness no hematoma at head Head/face: normal Eyes: EOMI, QUIANA ENT: mucous membranes moist Neck: supple, non-tender, no JVD Respiratory: grossly diminished breath sounds with fine expiratory wheezes Cardiovascular: RRR, pulses symmetrical Abdomen: non-tender, soft Bowel Sounds: present Musculoskeletal: ROM intact, no muscular tenderness of back, 2-3+ pitting BLE edema, generalized weakness with no focality Neuro: normal, sensory motor intact, A&Ox3 Triage Information Reviewed: Yes Vital Signs On Initial Exam: Initial Vitals Temp Pulse Resp BP Pulse Ox 98.1 F 112 20 134/53 90 03/11/18 16:57 03/11/18 16:57 03/11/18 16:57 03/11/18 16:57 03/11/18 16:57 Vital Signs Reviewed: Yes Diagnostics - Vital Signs Vital Signs Temp Pulse Resp BP Pulse Ox 03/11/18 16:57 98.1 F 112 20 134/53 90 - Laboratory Result Diagrams: 03/11/18 17:28 03/11/18 17:28 Lab Statement: Any lab studies that have been ordered have been reviewed, and results considered in the medical decision making process. - Radiology CXR Radiology Interpretation Completed By: ED Physician Summary of Radiographic Findings: resolving pleural effusion, COPD, cardiomegaly , tortuous aorta, pending official report - EKG 1727 Cardiac Rate: Tachycardia - rate of 106 BPM EKG Rhythm: Sinus Tachycardia ST Segment: Non-Specific Summary of EKG Findings: EKG showed sinus tachycardia with rate of 106 BPM, normal axis, long QT, non-specific ST. Re-Evaluation - Re-Evaluation First Eval Re-Evaluation Time: 17:41 Comment: Review of medical records showed that patient was placed on diuretic and had her diltiazem changed. Second Eval Re-Evaluation Time: 17:53 Comment: Saw neurosurgeon 03/08, was supposed to see PCP yesterday but did not go. Lower Extremity Course/Dx - Course Course Of Treatment: Nurse's notes reviewed. Patient with chronic weakness, end -stage COPD presents with generalized weakness. She had a fall injuring her right posterior back without discomfort. There is a bruise in that area. Her magnesium level is low and this may be contributory. She also has recurring UTI and known persistent bacteriuria. There is no x-ray is seen in the urine today however there is lots of inflammatory cells. IV Rocephin was given and magnesium was replaced. A dose of her blood thinner was given. She has no headache or focal neurologic findings. She received a small fluid bolus and IV diltiazem to control heart rate which was improvement to the low 90s. She was discharged to follow up closely with her primary care physician. - Diagnoses Differential Diagnosis/HQI/PQRI: Positive: Other - UTI, pneumonia, COPD, CHF, metabolic disturbance Provider Diagnoses: Generalized weakness, Chest wall contusion, Multiple falls, End stage COPD, Hypomagnesemia, Tachycardia - Critical Care Time Critical Care Time: 30-74 min - Critical care time is exclusive of separately billable procedures Discharge - Sign-Out/Discharge Documenting (check all that apply): Patient Departure - discharge - Discharge Plan Condition: Improved Disposition: HOME Prescriptions: Magnesium Oxide TAB* [MagOx 400 TAB*] 400 mg PO DAILY #20 tab Patient Education Materials: Fall Prevention for Older Adults (ED), Tachycardia (ED) Referrals: Caridad Alvarado NP [Primary Care Provider] - Additional Instructions: Check your blood pressure and heart rate in the morning. If the blood pressure is over 120 and heart rate still remains around 100 take a full tablet of diltiazem 240 mg. Call your doctor first thing in the morning and schedule prompt follow-up, ideally being rechecked tomorrow. Always walk with a walker. Continue other medications as prescribed. Return with persistent falls, head injury, worsened breathing, fever, new symptoms or other concerns. - Billing Disposition and Condition Condition: IMPROVED Disposition: Home - Attestation Statements Document Initiated by Scribe: Yes Documenting Scribe: NIKO GONZALEZ Provider For Whom Scribe is Documenting (Include Credential): AMNA GRAHAM MD Scribe Attestation: NIKO Cary , scribed for AMNA GRAHAM MD on 03/11/18 at 1851. Scribe Documentation Reviewed: Yes Provider Attestation: The documentation as recorded by the [email or web address] accurately reflects the service I personally performed and the decisions made by me, AMNA GRAHAM MD Status of [place] Document: Viewed
[2018-03-11] MEDS ORDERED: Diltiazem IV* 5 MG/ML 5 ML VIAL (for loading dose/IV Push) (25 MG) IV SLOW PU ONE (17:41)
[2018-03-11 17:52] LABS: INR 1.48 (0.77-1.02)
[2018-03-11 17:55] LABS: ABS Basophils 0 10^3/ul (0-0.2); ABS Eosinophils 0 10^3/ul (0-0.6); ABS Lymphocytes 1.1 10^3/ul (1.0-4.8); ABS Monocytes 0.3 10^3/ul (0-0.8); ABS Neutrophils 3.3 10^3/ul (1.5-7.7); ABS Nucleated RBC 0 10^3/ul; Eosinophil % 0.7 %; Hematocrit 33 % (35-47); Hemoglobin 10.5 g/dl (12.0-16.0); Lymphocyte % 22.5 %; Mean Corpuscular HGB Conc 32 g/dl (31-36); Mean Corpuscular Hemoglobin 29 pg (27-31); Mean Corpuscular Volume 91 fL (80-97); Mean Platelet Volume 6.4 fL (7.4-10.4); Nucleated Red Blood Cells % 0; Platelet Count 259 10^3/ul (150-450); Red Blood Count 3.59 10^6/ul (4.00-5.40); Red Cell Distribution Width 17 % (10.5-15); White Blood Count 4.7 10^3/ul (3.5-10.8)
[2018-03-11 17:57] LABS: Albumin/Globulin Ratio 1.4 (1-3); BUN/Creatinine Ratio 15.4 (8-20); Calcium 9.2 mg/dL (8.6-10.3); EGFR African American 62.9 (>60); EGFR Non-African American 51.9 (>60); Globulin 2.9 g/dL (2-4); Magnesium 1.8 mg/dL (1.9-2.7); Potassium 3.9 mmol/L (3.5-5.0); Total Bilirubin 0.2 mg/dL (0.2-1.0); Total Protein 6.9 g/dL (6.4-8.9)
[2018-03-11] MEDS ORDERED: NS 0.9% 250 ML* 250 ML IV ONE (18:08)
[2018-03-11] MEDS ORDERED: Magnesium Oxide TAB* 400 MG PO ONE (18:09)
[2018-03-11] MEDS ORDERED: Rivaroxaban TAB(*) 20 MG TAB PO ONE (18:10)
[2018-03-11 18:15] LABS: TSH (Thyroid Stimulating Horm) 4.67 mcIU/mL (0.34-5.60)
[2018-03-11 18:46] LABS: Urine Appearance Cloudy; Urine Bacteria Absent (Absent); Urine Bilirubin Negative (Negative); Urine Blood Negative (Negative); Urine Color Yellow; Urine Glucose Negative (Negative); Urine Ketones Negative (Negative); Urine Nitrite Negative (Negative); Urine Protein 1+(30 mg/dL) (Negative); Urine Red Blood Cell 2+(6-10/hpf) (Absent); Urine Specific Gravity 1.019 (1.010-1.030); Urine Squamous Epithelial Cell Present (Absent); Urine Urobilinogen Positive (Negative); Urine White Blood Cell 3+(>20/hpf) (Absent)
[2018-03-11] MEDS ORDERED: cefTRIAXone(*) 1 GM in NS 0.9% 50 ML* 50 ML IVPB ONE (18:47)
[2018-03-11] MEDS ORDERED: cefTRIAXone VIAL(*) 1,000 MG VIAL IM ONE (19:08)
[2018-03-11] MEDS ORDERED: cefTRIAXone VIAL(*) 1,000 MG VIAL ONE (19:09)
[2018-03-11 19:17] VITALS: BP 130/67
== END 2018-03-11 19:16 | disposition home or self-care (01) ==
LOC: ED 16:52
DX: R53.1 Weakness (principal); R60.0 Localized edema; S20.219A Contusion of unspecified front wall of thorax, initial encounter; W19.XXXA Unspecified fall, initial encounter; Y92.9 Unspecified place or not applicable; J44.9 Chronic obstructive pulmonary disease, unspecified; E83.42 Hypomagnesemia; R00.0 Tachycardia, unspecified
CPT/HCPCS: 36415; 71045; 80053; 81003; 81015; 82550; 83605; 83735; 83880; 84443; 84484; 85025; 85610; 87086; 93005; 96372; 96374; 99283; J0696

== ENCOUNTER 2018-03-16 23:08 | Emergency (ER) | payer MEDICARE ==
[2018-03-16] MEDS ORDERED: NS 0.9% 500 ML* 500 ML IV ONE (23:39)
[2018-03-16] MEDS ORDERED: Diltiazem IV* 5 MG/ML 5 ML VIAL (for loading dose/IV Push) (25 MG) IV SLOW PU ONE (23:40)
--- NOTE | 2018-03-16 23:44 | ED ---
HPI Cardiac - HPI Summary HPI Summary: A 72 y/o female brought in by [facility] presents to [facility] with a chief complaint of an elevated heart rate since 21:30 03/16/18. She also reports a new abdominal pain since being in the ambulance. She was recently in the ED on 03/11/18 and was instructed to return if her HR raised above 100. She reports that her HR was in the 120s. She takes 400 mg Gabapentin and Cardizem. She reports that she was instructed recently to stop taking Metroprolol. Per triage note she denies palpitations, SOB, CP or dizziness. She rates her pain as a 0/ 10. Hx of HTN. - History of Current Complaint Chief Complaint: EDGeneral Stated Complaint: ELEVATED HR Time Seen by Provider: 03/16/18 23:13 Hx Obtained From: Patient, Family/Ux Engineer Hx Last Menstrual Period: hysterectomy Onset/Duration: Started Hours Ago, Still Present Time of Onset: 21:30 Timing: Constant, Lasting Hours Initial Severity: Mild Current Severity: Mild Pain Intensity: 0 Pain Scale Used: 0-10 Numeric Aggravating Factor(s): Nothing Alleviating Factor(s): Nothing Associated Signs and Symptoms: Positive: Abdominal Pain. Negative: Fever - Additional Pertinent History Primary Care Physician: [id number] - Allergy/Home Medications Allergies/Adverse Reactions: Allergies Allergy/AdvReac Type Severity Reaction Status Date / Time Adhesive Tape [Plastic Tape] Allergy Mild Rash Verified 03/03/18 15:59 latex Allergy Unknown Unknown Verified 03/03/18 15:59 Reaction Details pregabalin Allergy Altered Verified 03/03/18 15:59 Mental Status Monitor Stickers Allergy Mild Rash Uncoded 03/03/18 15:59 Home Medications: Home Medications Albuterol 2.5MG/3ML (0.083%)* 3 ml INH Q4HR PRN 03/17/18 [History Confirmed ] Diltiazem CD CAP* [Cardizem CD CAP*] 120 mg PO DAILY 03/17/18 [History Confirmed 03/17/18] Guaifen-Codeine 100-10 mg/5 ml 10 ml PO Q6HR PRN 03/17/18 [History Confirmed ] Nystatin 1 applic TOPICAL TID 03/17/18 [History Confirmed 03/17/18] Tiotropium Brom/Olodaterol(NF) [Stiolto Respimat Inh [place] (60 puff)(NF)] 2 puff INH DAILY 03/17/18 [History Confirmed 03/17/18] Torsemide 10 mg PO DAILY PRN 03/17/18 [History Confirmed 03/17/18] PMH/Surg Hx/FS Hx/Imm Hx Endocrine/Hematology History: Reports: Hx Thyroid Disease Denies: Hx Anticoagulant Therapy, Hx Blood Transfusions, Hx Diabetes, Other Endocrine/Hematological Disorders Cardiovascular History: Reports: Hx Angina, Hx Atrial Fibrillation - well controlled and no meds per pt and daughter, Hx Coronary Artery Disease, Hx Hypercholesterolemia, Hx Hypertension - medicated, Hx Myocardial Infarction, Hx Syncope, Other Cardiovascular Problems/Disorders - HX OF LUNG CA Denies: Hx Congestive Heart Failure, Hx Pacemaker/ICD, Hx Valvular Heart Disease Respiratory History: Reports: Hx Chronic Obstructive Pulmonary Disease (COPD), Hx Lung Cancer, Hx Pleural Effusion, Hx Seasonal Allergies, Hx Sleep Apnea - havent had sleep study, Other Respiratory Problems/Disorders - LUNG CA Denies: Hx Asthma, Hx Pneumonia GI History: Reports: Hx Gall Bladder Disease, Hx Gastroesophageal Reflux Disease Denies: Other GI Disorders - colonoscopy found polyps benign 2011 History: Reports: Hx Renal Disease, Other Problems/Disorders - Right Nephrectomy. 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, Other Musculoskeletal History - back pain when weather is damp Sensory History: Reports: Hx Contacts or Glasses Denies: Hx Hearing Aid, Other Sensory Impairments Opthamlomology History: Reports: Hx Contacts or Glasses Denies: Other Sensory Impairments Neurological History: Denies: Hx Dementia, Hx Seizures, Other Neuro Impairments/Disorders Psychiatric History: Reports: Hx Anxiety - ON MEDICATION, Hx Depression, Hx Panic Disorder Denies: Hx Eating Disorder, Hx Suicide Attempt, Hx of Violent Episodes Against Others, Hx Substance Abuse, Other Psychiatric Issues/Disorders - Cancer History Cancer Type, Location and Year: Lung Cancer, treated w/ radiation, 2012. RENAL CANCER W/RIGHT NEPHRECTOMY Hx Chemotherapy: No Hx Radiation Therapy: Yes - HX OF LUNG AND KIDNEY CA - Surgical History Surgery Procedure, Year, and Place: HYSTERECTOMY, GALLBLADDER 2012, CARDIAC CATH 2012 (NO STENTS), RIGHT NEPHRECTOMY 2012, tonsillectomy Hx Anesthesia Reactions: No Infectious Disease History: No Infectious Disease History: Reports: Hx Shingles Denies: Hx Hepatitis, Hx Human Immunodeficiency Virus (HIV), Hx of Known/ Suspected MRSA, History Other Infectious Disease, Traveled Outside the [place] in Last 30 Days - Family History Known Family History: Positive: Unknown, Cardiac Disease, Hypertension Negative: Diabetes - Social History Alcohol Use: None Substance Use Type: Reports: None Hx Tobacco Use: Yes Smoking Status (MU): Unknown if Ever Smoked Have You Smoked in the Last Year: No Review of Systems Negative: Fever Cardiovascular: Other - Positive: elevated heartrate Negative: Palpitations, Chest Pain Negative: Shortness Of Breath Positive: Abdominal Pain Neurological: Negative - dizziness All Other Systems Reviewed And Are Negative: Yes Physical Exam - Summary Physical Exam Summary: VITAL SIGNS: Reviewed. GENERAL: Patient is a morbidly obese FEMALE who is lying comfortable in the stretcher. Patient is not in any acute respiratory distress. HEAD AND FACE: No signs of trauma. No ecchymosis, hematomas or skull depressions. No sinus tenderness. EYES: PERRLA, EOMI x 2, No injected conjunctiva, no nystagmus. EARS: Hearing grossly intact. Ear canals and tympanic membranes are within normal limits. MOUTH: Oropharynx within normal limits. NECK: Supple, trachea is midline, no adenopathy, no JVD, no carotid bruit, no c- spine tenderness, neck with full ROM. CHEST: Symmetric, no tenderness at palpation LUNGS: Clear to auscultation bilaterally. No wheezing or crackles. CVS: Tachycardic, Regular rhythm, S1 and S2 present, no murmurs or gallops appreciated. ABDOMEN: Soft, LLQ tenderness. No signs of distention. No rebound no guarding, and no masses palpated. Bowel sounds are normal. EXTREMITIES: FROM in all major joints, no edema, no cyanosis or clubbing. NEURO: Alert and oriented x 3. No acute neurological deficits. Speech is normal and follows commands. SKIN: Dry and warm Triage Information Reviewed: Yes Vital Signs On Initial Exam: Initial Vitals Temp Pulse Resp BP Pulse Ox 99.0 F 109 20 116/75 97 03/16/18 23:19 03/16/18 23:19 03/16/18 23:19 03/16/18 23:19 03/16/18 23:19 Vital Signs Reviewed: Yes Diagnostics - Vital Signs Vital Signs Temp Pulse Resp BP Pulse Ox 03/16/18 23:19 99.0 F 109 20 116/75 97 - Laboratory Result Diagrams: 03/16/18 23:54 03/16/18 23:54 Lab Statement: Any lab studies that have been ordered have been reviewed, and results considered in the medical decision making process. - Radiology CXR Radiology Interpretation Completed By: ED Physician Summary of Radiographic Findings: No acute process. Pending official radiology report. - CT abdomen/pelvis CT Interpretation Completed By: Radiologist Summary of CT Findings: 1. A small hiatal hernia. 2. A moderate fecal load. 3. Prominent fluid filled ascending colon without evidence of obstruction. 4. Colonic diverticulosis with no evidence of acute diverticulitis. ED physician has reviewed this imaging report. - EKG 23:57 Cardiac Rate: NL - 102 bpm EKG Rhythm: Sinus Rhythm EKG Comparison: No Significant Change Summary of EKG Findings: Normal sinus rhythm at 102 bpm. Normal axis. Normal interval. No ischemic changes. No change from previous EKG done on 03/11/18. Re-Evaluation - Re-Evaluation First Eval Re-Evaluation Time: 02:30 Change: Unchanged Comment: Patient feels the same Second Eval Re-Evaluation Time: 03:35 Change: Improved Comment: Patient is ready for discharge. Disposition - Course Course Of Treatment: A 72 y/o female brought in by [facility] presents to [facility] with a chief complaint of an elevated heart rate since 21:30 03/16/18. The physical exam revealed that the patient was morbidly obese and tachycardic. In the ED course the patient was given diltiazem IV. An EKG revealed NSR at 102 bpm. CXR was negative. Abdomen/pelvis CT impression: 1. A small hiatal hernia. 2. A moderate fecal load. 3. Prominent fluid filled ascending colon without evidence of obstruction. 4. Colonic diverticulosis with no evidence of acute diverticulitis. The patient will be discharged. The ED provider has reviewed this imaging report. In the ED, the patient's heartarate is staying around 100 bpm. She seems like she has been asymptomatic. She was instructed to contact her clamp operator tomorrow if her heartrate continues like this or increases. She will be discharged. Strict return precautions were given. She is agreeable with this plan. - Diagnoses Provider Diagnoses: Palpitations Discharge - Sign-Out/Discharge Documenting (check all that apply): Patient Departure - DC - Discharge Plan Condition: Stable Disposition: HOME Referrals: Caridad Alvarado TECHNICAL FELLOW [Primary Care Provider] - (1-2 days) Additional Instructions: RETURN TO THE EMERGENCY DEPARTMENT FOR CHANGING OR WORSENING SYMPTOMS. FOLLOW UP WITH PCP IN 1-2 DAYS. - Billing Disposition and Condition Condition: STABLE Disposition: Home - Attestation Statements Document Initiated by Scribe: Yes Documenting Scribe: Murray Streeter Provider For Whom [facility] is Documenting (Include Credential): Diallo Holt MD Scribe Attestation: Murray Cary, scribed for Diallo Holt MD on 03/17/18 at 0422. Scribe Documentation Reviewed: Yes Provider Attestation: The documentation as recorded by the Murray russell accurately reflects the service I personally performed and the decisions made by Atiya gilman MD Status of Scribe Document: Viewed
[2018-03-17 00:02] LABS: ABS Basophils 0.1 10^3/ul (0-0.2); ABS Eosinophils 0.1 10^3/ul (0-0.6); ABS Lymphocytes 1.4 10^3/ul (1.0-4.8); ABS Monocytes 0.4 10^3/ul (0-0.8); ABS Neutrophils 5.2 10^3/ul (1.5-7.7); ABS Nucleated RBC 0 10^3/ul; Eosinophil % 0.9 %; Hematocrit 34 % (35-47); Hemoglobin 10.8 g/dl (12.0-16.0); Mean Corpuscular HGB Conc 32 g/dl (31-36); Mean Corpuscular Hemoglobin 29 pg (27-31); Mean Corpuscular Volume 92 fL (80-97); Mean Platelet Volume 6.2 fL (7.4-10.4); Nucleated Red Blood Cells % 0; Platelet Count 240 10^3/ul (150-450); Red Blood Count 3.72 10^6/ul (4.00-5.40); Red Cell Distribution Width 17 % (10.5-15); White Blood Count 7.2 10^3/ul (3.5-10.8)
[2018-03-17 00:17] LABS: Activated Partial Thrombo Time 46.3 seconds (26.0-36.3); INR 2.04 (0.77-1.02)
[2018-03-17 00:19] LABS: Albumin 4.2 g/dL (3.2-5.2); Albumin/Globulin Ratio 1.4 (1-3); Calcium 9.4 mg/dL (8.6-10.3); EGFR Non-African American 58.4 (>60); Globulin 3.1 g/dL (2-4); Magnesium 2.1 mg/dL (1.9-2.7); Potassium 3.8 mmol/L (3.5-5.0); Total Bilirubin 0.4 mg/dL (0.2-1.0); Total Protein 7.3 g/dL (6.4-8.9)
[2018-03-17] MEDS ORDERED: Diltiazem IV* 5 MG/ML 5 ML VIAL (for loading dose/IV Push) (25 MG) IV SLOW PU ONE (00:33)
[2018-03-17 00:38] LABS: TSH (Thyroid Stimulating Horm) 3.39 mcIU/mL (0.34-5.60)
[2018-03-17] MEDS ORDERED: Iodixanol* (CONTRAST) 320 MG/ML 100 ML SDV IV ONE (00:44)
[2018-03-17] MEDS ORDERED: NS 0.9% 500 ML* 500 ML IV ONE (01:31)
[2018-03-17] MEDS ORDERED: NS 0.9% 1000 ML* 1,000 ML IV ONE (02:29)
[2018-03-17 03:50] VITALS: BP 105/80
== END 2018-03-17 03:52 | disposition home or self-care (01) ==
LOC: ED 23:08
DX: R00.2 Palpitations (principal); K44.9 Diaphragmatic hernia without obstruction or gangrene; K57.30 Diverticulosis of large intestine without perforation or abscess without bleeding; F41.9 Anxiety disorder, unspecified; Z91.040 Latex allergy status; Z88.8 Allergy status to other drugs, medicaments and biological substances; Z91.048 Other nonmedicinal substance allergy status
CPT/HCPCS: 36415; 71045; 74177; 80053; 82150; 83690; 83735; 83880; 84443; 84484; 85025; 85610; 85730; 93005; 96361; 96374; 96376; 99282; Q9967

== ENCOUNTER 2018-07-13 09:08 | Emergency (ER) | payer MEDICARE ==
--- NOTE | 2018-07-13 09:43 | ED ---
GI/ HPI - HPI Summary HPI Summary: Pt is a 73 y/o F presenting to the ED with a chief complaint of bleeding first onset this morning around 0115. When she woke up to go to the bathroom, she noticed blood in her Depends and the toilet. This happened again at 0400, and another time at 0730 where the bleeding was worse. The blood was noticed after urination, so the pt is unsure if it is coming from her urine or her vagina, but notes that she has not had her menstrual period in years. She reports R-sided flank pain. She denies abd pain, dizziness, and lightheadedness. - History of Current Complaint Chief Complaint: EDVaginalBleeding Time Seen by Provider: 07/13/18 09:23 Stated Complaint: VAGINAL BLEEDING PER PT Hx Obtained From: Patient Hx Last Menstrual Period: hysterectomy Onset/Duration: Started Hours Ago, Still Present, Worse Since - 0730 Timing: Constant, Lasting Hours Severity: Moderate Current Severity: Severe Vaginal Bleeding Description: Bright Red Pain Intensity: 7 Location of Pain: Flank Associated Signs and Symptoms: Positive: Flank Pain. Negative: Dizziness, Lightheadedness, Abdominal Pain Aggravating Factor(s): Urination Alleviating Factor(s): Nothing - Additional Pertinent History Primary Care Physician: [id number] - Allergy/Home Medications Allergies/Adverse Reactions: Allergies Allergy/AdvReac Type Severity Reaction Status Date / Time Adhesive Tape [Plastic Tape] Allergy Mild Rash Verified 07/13/18 09:17 latex Allergy Unknown Unknown Verified 07/13/18 09:17 Reaction Details pregabalin Allergy Altered Verified 07/13/18 09:17 Mental Status Monitor Stickers Allergy Mild Rash Uncoded 07/13/18 09:17 Home Medications: Home Medications Iron Polysaccharide Complex [Ferrex 150] 150 mg PO DAILY 07/13/18 [History Confirmed 07/13/18] PMH/Surg Hx/FS Hx/Imm Hx Previously Healthy: No Endocrine/Hematology History: Reports: Hx Thyroid Disease Denies: Hx Anticoagulant Therapy, Hx Blood Transfusions, Hx Diabetes, Other Endocrine/Hematological Disorders Cardiovascular History: Reports: Hx Angina, Hx Atrial Fibrillation - well controlled and no meds per pt and daughter, Hx Coronary Artery Disease, Hx Hypercholesterolemia, Hx Hypertension - medicated, Hx Myocardial Infarction, Hx Syncope, Other Cardiovascular Problems/Disorders - HX OF LUNG CA Denies: Hx Congestive Heart Failure, Hx Pacemaker/ICD, Hx Valvular Heart Disease Respiratory History: Reports: Hx Chronic Obstructive Pulmonary Disease (COPD), Hx Lung Cancer, Hx Pleural Effusion, Hx Seasonal Allergies, Hx Sleep Apnea - havent had sleep study, Other Respiratory Problems/Disorders - LUNG CA Denies: Hx Asthma, Hx Pneumonia GI History: Reports: Hx Gall Bladder Disease, Hx Gastroesophageal Reflux Disease Denies: Other GI Disorders - colonoscopy found polyps benign 2011 History: Reports: Hx Renal Disease, Other Problems/Disorders - Right Nephrectomy. 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, Other Musculoskeletal History - back pain when weather is damp Sensory History: Reports: Hx Contacts or Glasses Denies: Hx Hearing Aid, Other Sensory Impairments Opthamlomology History: Reports: Hx Contacts or Glasses Denies: Other Sensory Impairments Neurological History: Denies: Hx Dementia, Hx Seizures, Other Neuro Impairments/Disorders Psychiatric History: Reports: Hx Anxiety - ON MEDICATION, Hx Depression, Hx Panic Disorder Denies: Hx Eating Disorder, Hx Suicide Attempt, Hx of Violent Episodes Against Others, Hx Substance Abuse, Other Psychiatric Issues/Disorders - Cancer History Cancer Type, Location and Year: Lung Cancer, treated w/ radiation, 2012. RENAL CANCER W/RIGHT NEPHRECTOMY Hx Chemotherapy: No Hx Radiation Therapy: Yes - HX OF LUNG AND KIDNEY CA - Surgical History Surgery Procedure, Year, and Place: HYSTERECTOMY, GALLBLADDER 2012, CARDIAC CATH 2012 (NO STENTS), RIGHT NEPHRECTOMY 2012, tonsillectomy Hx Anesthesia Reactions: No Infectious Disease History: No Infectious Disease History: Reports: Hx Shingles Denies: Hx Hepatitis, Hx Human Immunodeficiency Virus (HIV), Hx of Known/ Suspected MRSA, History Other Infectious Disease, Traveled Outside the [place] in Last 30 Days - Family History Known Family History: Positive: Cardiac Disease, Hypertension Negative: Diabetes - Social History Alcohol Use: None Hx Substance Use: No Substance Use Type: Reports: None Hx Tobacco Use: Yes Smoking Status (MU): Former Smoker Have You Smoked in the Last Year: No Review of Systems Negative: Abdominal Pain Positive: other - vaginal bleeding Positive: Myalgia Neurological: Negative - dizziness, lightheadedness All Other Systems Reviewed And Are Negative: Yes Physical Exam - Summary Physical Exam Summary: Appearance: The patient is well-nourished in no acute distress and in no acute pain. Skin: The skin is warm and dry and skin color reflects adequate perfusion. HEENT: The head is normocephalic and atraumatic. The pupils are equal and reactive. The conjunctivae are clear and without drainage. Nares are patent and without drainage. Mouth reveals moist mucous membranes and the throat is without erythema and exudate. The external ears are intact. The ear canals are patent and without drainage. The tympanic membranes are intact. Neck: The neck is supple with full range of motion and non-tender. There are no carotid bruits. There is no neck vein distension. Respiratory: Chest is non-tender. Lungs are clear to auscultation and breath sounds are symmetrical and equal. Cardiovascular: Heart is regular rate and rhythm. There is no murmur or rub auscultated. There is no peripheral edema and pulses are symmetrical and equal. Abdomen: The abdomen is soft and non-tender. There are normal bowel sounds heard in all four quadrants and there is no organomegaly palpated. Musculoskeletal: There is no back tenderness noted. Extremities are non-tender with full range of motion. There is good capillary refill. There is no peripheral edema or calf tenderness elicited. Neurological: Patient is alert and oriented to person, place and time. The patient has symmetrical motor strength in all four extremities. Cranial nerves are grossly intact. Deep tendon reflexes are symmetrical and equal in all four extremities. Psychiatric: The patient has an appropriate affect and does not exhibit any anxiety or depression. Pelvic: Mild blood at the introitus, with speculum exam I can see to the pessory , and there is a small amount of blood coming around the pessory. Triage Information Reviewed: Yes Vital Signs On Initial Exam: Initial Vitals Temp Pulse Resp BP Pulse Ox 97.9 F 101 16 131/104 88 07/13/18 09:12 07/13/18 09:12 07/13/18 09:12 07/13/18 09:12 07/13/18 09:12 Vital Signs Reviewed: Yes Diagnostics - Vital Signs Vital Signs Temp Pulse Resp BP Pulse Ox 07/13/18 09:12 97.9 F 101 16 131/104 88 - Laboratory Result Diagrams: 07/13/18 09:46 07/13/18 09:46 Lab Statement: Any lab studies that have been ordered have been reviewed, and results considered in the medical decision making process. GIGU Course/Dx - Course Course Of Treatment: Ms. Mcdonald noticed a little blood in her depends this morning a couple of times. She saw some blood in the toilet water and she urinated also. She was nontoxic in appearance with stable vitals. Her abdomen was soft and nontender. There was a very slight amount of serosanguineous fluid at the vaginal introitus. With the speculum I could see back to the pessary and there was also the fluid very slightly. I can't tell if this is coming from behind the pessary or not. Her urine showed a small amount of blood and a small amount of white blood cells but also squamous cells and there was no bacteria seen. This was sent for culture. I recommended she follow up with FLIGHT/TRANSPORT NURSE if the problem continues. The pessary may need to be removed and a better exam performed. - Diagnoses Provider Diagnoses: Vaginal bleeding Discharge - Sign-Out/Discharge Documenting (check all that apply): Patient Departure Patient Received Moderate/Deep Sedation with Procedure: No - Discharge Plan Condition: Stable Disposition: HOME Referrals: Caridad Alvarado NP [Primary Care Provider] - Additional Instructions: Please follow up with your primary care provider within the next 2-3 days. Return to the emergency department with any new or worsening symptoms. - Billing Disposition and Condition Condition: STABLE Disposition: Home - Attestation Statements Document Initiated by Scribe: Yes Documenting Scribe: Autumn Clifton Provider For Whom [facility] is Documenting (Include Credential): John Schofield MD. Scribe Attestation: Autumn Cary, scribed for John Schofield MD. on 07/13/18 at 1729. Scribe Documentation Reviewed: Yes Provider Attestation: The documentation as recorded by the Autumn russell accurately reflects the service I personally performed and the decisions made by me, John Schofield MD. Status of Scribe Document: Viewed
[2018-07-13 10:06] LABS: ABS Eosinophils 0.2 10^3/ul (0-0.6); ABS Lymphocytes 1.3 10^3/ul (1.0-4.8); ABS Monocytes 0.3 10^3/ul (0-0.8); Eosinophil % 3.6 %; Hematocrit 33 % (35-47); Hemoglobin 10.7 g/dL (12.0-16.0); Mean Corpuscular HGB Conc 33 g/dL (31-36); Mean Corpuscular Hemoglobin 30 pg (27-31); Mean Corpuscular Volume 93 fL (80-97); Mean Platelet Volume 6.4 fL (7.4-10.4); Platelet Count 203 10^3/uL (150-450); Red Blood Count 3.57 10^6 /uL (3.70-4.87); Red Cell Distribution Width 14 % (10.5-15); White Blood Count 4.8 10^3/uL (3.5-10.8)
[2018-07-13 10:17] LABS: Activated Partial Thrombo Time 39.3 seconds (26.0-36.3); INR 1.25 (0.82-1.09)
[2018-07-13 10:29] LABS: Albumin 3.7 g/dL (3.2-5.2); Albumin/Globulin Ratio 1.1 (1-3); BUN/Creatinine Ratio 16.1 (8-20); EGFR African American 71.3 (>60); EGFR Non-African American 58.9 (>60); Globulin 3.3 g/dL (2-4); Potassium 4.2 mmol/L (3.5-5.0); Total Bilirubin 0.3 mg/dL (0.2-1.0)
[2018-07-13 10:54] LABS: Urine Appearance Clear; Urine Bacteria 1+ (Absent); Urine Bilirubin Negative (Negative); Urine Blood 2+ (Negative); Urine Color Straw; Urine Glucose Negative (Negative); Urine Ketones Negative (Negative); Urine Nitrite Negative (Negative); Urine Protein Negative (Negative); Urine Red Blood Cell 3+(>10/hpf) (Absent); Urine Specific Gravity 1.005 (1.010-1.030); Urine Squamous Epithelial Cell Present (Absent); Urine Urobilinogen Negative (Negative); Urine White Blood Cell 1+(6-10/hpf) (Absent)
[2018-07-13 12:01] VITALS: BP 130/68
--- NOTE | 2018-07-16 11:05 | PN ---
Progress Note - Progress Note Date of Service: 07/13/18 Note: Urine culture growing >100k e.coli. I called and spoke with pt. and her daughter today at 1100. Will tx with keflex based on culture. Pt. states she usually gets yeast infections when she take an antibx, diflucan rx as well. To f.u with PCP. Pt. an daughter understand and agree with plan.
== END 2018-07-13 12:01 | disposition home or self-care (01) ==
LOC: ED 09:08
DX: N95.0 Postmenopausal bleeding (principal); E07.9 Disorder of thyroid, unspecified; I48.91 Unspecified atrial fibrillation; I25.10 Atherosclerotic heart disease of native coronary artery without angina pectoris; E78.00 Pure hypercholesterolemia, unspecified; K21.9 Gastro-esophageal reflux disease without esophagitis; I10 Essential (primary) hypertension; I25.2 Old myocardial infarction; Z85.528 Personal history of other malignant neoplasm of kidney; Z91.040 Latex allergy status; Z85.118 Personal history of other malignant neoplasm of bronchus and lung
CPT/HCPCS: 36415; 80053; 81003; 81015; 85025; 85610; 85730; 86850; 86870; 86880; 86900; 86901; 87077; 87086; 87186; 99283

== ENCOUNTER 2019-05-02 10:09 | Emergency (ER) | payer MEDICARE ==
[2019-05-02 11:20] LABS: ABS Eosinophils 0.1 10^3/ul (0-0.6); ABS Lymphocytes 1.3 10^3/ul (1.0-4.8); ABS Monocytes 0.2 10^3/ul (0-0.8); ABS Neutrophils 3.5 10^3/ul (1.5-7.7); Eosinophil % 2.4 %; Hematocrit 32 % (35-47); Hemoglobin 10.6 g/dL (12.0-16.0); Lymphocyte % 25.3 %; Mean Corpuscular HGB Conc 33 g/dL (31-36); Mean Corpuscular Hemoglobin 31 pg (27-31); Mean Corpuscular Volume 95 fL (80-97); Mean Platelet Volume 6.6 fL (7.4-10.4); Platelet Count 299 10^3/uL (150-450); Red Blood Count 3.42 10^6 /uL (3.70-4.87); Red Cell Distribution Width 14 % (10-15); White Blood Count 5.2 10^3/uL (3.5-10.8)
[2019-05-02 11:42] LABS: Albumin 3.7 g/dL (3.2-5.2); BUN/Creatinine Ratio 11.4 (8-20); C Reactive Protein 37.51 mg/L (<8.01); EGFR African American 75.8 (>60); EGFR Non-African American 62.6 (>60); Globulin 3.8 g/dL (2-4); Potassium 3.4 mmol/L (3.5-5.0); Total Bilirubin 0.2 mg/dL (0.2-1.0); Total Protein 7.5 g/dL (6.4-8.9)
--- NOTE | 2019-05-02 12:22 | ED ---
Lower Extremity - HPI Summary HPI Summary: Patient is a 74 y/o F presenting to the ED for a chief complaint of bilateral LE edema, myalgia, and erythema that began on 04/29/19. Patient also reports shortness of breath that worsens with exertion. The shortness of breath is unchanged from baseline and not new. Patient denies fever, nausea, vomiting, or dysuria. Patient takes 400 mg of gabapentin at night and 100 mg of gabapentin during the day. She believes she is on diuretics, but she is unsure. Patient has had infusions in the past, but denies receiving dialysis. Typically, patient uses 3 L of oxygen at home. Dr. Brady is her PCP. She states her PCP is aware that she had bilateral LE edema. Allergies to any medications are denied. Patients medication reviewed this visit. - History of Current Complaint Chief Complaint: EDRashSkinAbscess Stated Complaint: RT LEG IS SWOLLEN AND RED PER PT Time Seen by Provider: 05/02/19 11:07 Hx Obtained From: Patient Hx Last Menstrual Period: hysterectomy Onset/Duration: Still Present Severity Initially: Severe Severity Currently: Severe Pain Intensity: 8 Pain Scale Used: 0-10 Numeric Timing: Constant Location: Is Discrete @ - Bilateral LE Associated Signs And Symptoms: Positive: Swelling - Bilateral LE, Redness - Bilateral LE. Negative: Fever - Allergies/Home Medications Allergies/Adverse Reactions: Allergies Allergy/AdvReac Type Severity Reaction Status Date / Time latex Allergy Unknown Unknown Verified 05/02/19 10:14 Reaction Details pregabalin Allergy Altered Verified 05/02/19 10:14 Mental Status Adhesive Tape [Plastic Tape] AdvReac Mild Rash Verified 05/02/19 10:14 Monitor Stickers AdvReac Mild Rash Uncoded 05/02/19 10:14 Home Medications: Home Medications traZODone TAB* [Desyrel TAB*] 200 mg PO BEDTIME PRN 04/24/12 [History Confirmed 05/02/19] Cyclobenzaprine TAB* [Flexeril 10 MG TAB*] 10 mg PO BEDTIME PRN 08/30/14 [ History Confirmed 05/02/19] Gabapentin CAP(*) [Neurontin 300 CAP(*)] 400 mg PO BEDTIME 08/30/14 [History Confirmed 05/02/19] Albuterol HFA INHALER* [Ventolin HFA Inhaler*] 2 puff INH Q4HR PRN 09/24/16 [ History Confirmed 05/02/19] Levothyroxine TAB* [Synthroid 100 MCG TAB*] 100 mcg PO DAILY 02/03/18 [History Confirmed 05/02/19] Citalopram TAB* [Celexa TAB*] 40 mg PO DAILY tab 02/07/18 [Rx Confirmed ] Albuterol 2.5MG/3ML (0.083%)* [Ventolin 2.5 MG/3 ML NEB.SKYLER*] 3 ml INH Q4H PRN 03/17/18 [History Confirmed 05/02/19] Diltiazem CD CAP* [Cardizem CD CAP*] 240 mg PO DAILY 03/17/18 [History Confirmed 05/02/19] Nystatin 1 applic TOPICAL TID 03/17/18 [History Confirmed 05/02/19] Tiotropium Brom/Olodaterol [Stiolto Respimat Inh Gary (60 puff)(NF)] 2 puff INH DAILY 03/17/18 [History Confirmed 05/02/19] Torsemide 10 mg PO DAILY PRN 03/17/18 [History Confirmed 05/02/19] DOXYcycline CAP(*) [DOXYcycline 100MG CAP(*)] 100 mg PO BID #19 cap 05/02/19 [Rx ] Fluconazole 150 MG TAB* [Diflucan 150 MG TAB*] 150 mg PO DAILY 05/02/19 [ History Confirmed 05/02/19] Omeprazole CAP (NF) [Prilosec CAP* 20 MG] 20 mg PO DAILY 05/02/19 [History Confirmed 05/02/19] Oxybutynin TAB* [Ditropan TAB*] 5 mg PO TID 05/02/19 [History Confirmed 05/02/19 ] Rivaroxaban TAB(*) [Xarelto 20 mg] 20 mg PO DAILY 05/02/19 [History Confirmed ] guaiFENesin/CODIENE 100mg/10mg [Robitussin AC 100Mg/10Mg in 5 ml] 5 ml PO Q6H PRN MDD 20ml 05/02/19 [History Confirmed 05/02/19] PMH/Surg Hx/FS Hx/Imm Hx Previously Healthy: Yes Endocrine/Hematology History: Reports: Hx Thyroid Disease Denies: Hx Anticoagulant Therapy, Hx Blood Transfusions, Hx Diabetes, Other Endocrine/Hematological Disorders Cardiovascular History: Reports: Hx Angina, Hx Atrial Fibrillation - well controlled and no meds per pt and daughter, Hx Coronary Artery Disease, Hx Hypercholesterolemia, Hx Hypertension - medicated, Hx Myocardial Infarction, Hx Syncope, Other Cardiovascular Problems/Disorders - HX OF LUNG CA Denies: Hx Congestive Heart Failure, Hx Pacemaker/ICD, Hx Valvular Heart Disease Respiratory History: Reports: Hx Chronic Obstructive Pulmonary Disease (COPD), Hx Lung Cancer, Hx Pleural Effusion, Hx Seasonal Allergies, Hx Sleep Apnea - havent had sleep study, Other Respiratory Problems/Disorders - LUNG CA Denies: Hx Asthma, Hx Pneumonia GI History: Reports: Hx Gall Bladder Disease, Hx Gastroesophageal Reflux Disease Denies: Other GI Disorders - colonoscopy found polyps benign 2011 History: Reports: Hx Renal Disease, Other Problems/Disorders - Right Nephrectomy. 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, Other Musculoskeletal History - back pain when weather is damp Sensory History: Reports: Hx Contacts or Glasses Denies: Hx Legally Blind, Hx Deafness, Hx Hearing Aid, Other Sensory Impairments Opthamlomology History: Reports: Hx Contacts or Glasses Denies: Hx Legally Blind, Other Sensory Impairments EENT History: Denies: Hx Deafness Neurological History: Denies: Hx Dementia, Hx Seizures, Other Neuro Impairments/Disorders Psychiatric History: Reports: Hx Anxiety - ON MEDICATION, Hx Depression Denies: Hx Eating Disorder, Hx Panic Disorder, Hx Suicide Attempt, Hx of Violent Episodes Against Others, Hx Substance Abuse, Other Psychiatric Issues/ Disorders - Cancer History Cancer Type, Location and Year: Lung Cancer, treated w/ radiation, 2012. RENAL CANCER W/RIGHT NEPHRECTOMY Hx Chemotherapy: No Hx Radiation Therapy: Yes - Surgical History Surgical History: Yes Surgery Procedure, Year, and Place: HYSTERECTOMY,. GALLBLADDER 2012,. CARDIAC CATH 2012 (NO STENTS),. RIGHT NEPHRECTOMY 2012,. TONSILLECTOMY; Hx Anesthesia Reactions: No Infectious Disease History: Yes Infectious Disease History: Reports: Hx Shingles Denies: Hx Hepatitis, Hx Human Immunodeficiency Virus (HIV), Hx of Known/ Suspected MRSA, History Other Infectious Disease, Traveled Outside the [place] in Last 30 Days - Family History Known Family History: Positive: Cardiac Disease, Hypertension Negative: Diabetes - Social History Occupation: Retired Lives: With Family Alcohol Use: None Hx Substance Use: No Substance Use Type: Reports: None Hx Tobacco Use: Yes Smoking Status (MU): Former Smoker Type: Cigarettes Have You Smoked in the Last Year: No Review of Systems Negative: Fever Positive: Shortness Of Breath - At baseline Negative: Vomiting, Nausea Negative: dysuria Positive: Myalgia - Bilateral LE, Edema - Bilateral LE Positive: Other - Positive bilateral LE erythema All Other Systems Reviewed And Are Negative: Yes Physical Exam Triage Information Reviewed: Yes Vital Signs On Initial Exam: Initial Vitals Temp Pulse Resp BP Pulse Ox 97.8 F 112 20 99/72 90 05/02/19 10:13 05/02/19 10:13 05/02/19 10:13 05/02/19 10:13 05/02/19 10:13 Vital Signs Reviewed: Yes Procedures - Sedation Patient Received Moderate/Deep Sedation with Procedure: No Diagnostics - Vital Signs Vital Signs Temp Pulse Resp BP Pulse Ox 05/02/19 12:01 104 134/106 100 05/02/19 12:00 104 99 05/02/19 11:31 100 140/104 99 05/02/19 11:08 98.1 F 105 20 149/75 95 05/02/19 11:03 107 149/75 91 05/02/19 11:01 114 69 05/02/19 10:13 97.8 F 112 20 99/72 90 - Laboratory Lab Results: Lab Results 05/02/19 05/02/19 05/02/19 Range/Units 11:07 11:07 11:07 WBC 5.2 (3.5-10.8) 10^3/uL RBC 3.42 L (3.70-4.87) 10^6 /uL Hgb 10.6 L (12.0-16.0) g/dL Hct 32 L (35-47) % MCV 95 (80-97) fL MCH 31 (27-31) pg MCHC 33 (31-36) g/dL RDW 14 (10-15) % Plt Count 299 (150-450) 10^3/uL MPV 6.6 L (7.4-10.4) fL Neut % (Auto) 67.5 % Lymph % (Auto) 25.3 % [place] % (Auto) 4.6 % Eos % (Auto) 2.4 % Baso % (Auto) 0.2 % Absolute Neuts (auto) 3.5 (1.5-7.7) 10^3/ul Absolute Lymphs (auto) 1.3 (1.0-4.8) 10^3/ul Absolute Monos (auto) 0.2 (0-0.8) 10^3/ul Absolute Eos (auto) 0.1 (0-0.6) 10^3/ul Absolute Basos (auto) 0.0 (0-0.2) 10^3/ul Absolute Nucleated RBC 0.0 10^3/ul Nucleated RBC % 0.0 ESR Pending Sodium (135-145) mmol/L Potassium (3.5-5.0) mmol/L Chloride (101-111) mmol/L Carbon Dioxide (22-32) mmol/L Anion Gap (2-11) mmol/L BUN (6-24) mg/dL Creatinine (0.51-0.95) mg/dL Est GFR ( Amer) (>60) Est GFR (Non-Af Amer) (>60) BUN/Creatinine Ratio (8-20) Glucose (70-100) mg/dL Lactic Acid 1.9 (0.5-2.0) mmol/L Uric Acid 3.0 (2.3-6.6) mg/dL Calcium (8.6-10.3) mg/dL Total Bilirubin (0.2-1.0) mg/dL AST (13-39) U/L ALT (7-52) U/L Alkaline Phosphatase (34-104) U/L C-Reactive Protein 37.51 H (<8.01) mg/L Total Protein (6.4-8.9) g/dL Albumin (3.2-5.2) g/dL Globulin (2-4) g/dL Albumin/Globulin Ratio (1-3) 05/02/19 Range/Units 11:07 WBC (3.5-10.8) 10^3/uL RBC (3.70-4.87) 10^6 /uL Hgb (12.0-16.0) g/dL Hct (35-47) % MCV (80-97) fL MCH (27-31) pg MCHC (31-36) g/dL RDW (10-15) % Plt Count (150-450) 10^3/uL MPV (7.4-10.4) fL Neut % (Auto) % Lymph % (Auto) % [place] % (Auto) % Eos % (Auto) % Baso % (Auto) % Absolute Neuts (auto) (1.5-7.7) 10^3/ul Absolute Lymphs (auto) (1.0-4.8) 10^3/ul Absolute Monos (auto) (0-0.8) 10^3/ul Absolute Eos (auto) (0-0.6) 10^3/ul Absolute Basos (auto) (0-0.2) 10^3/ul Absolute Nucleated RBC 10^3/ul Nucleated RBC % ESR Sodium 142 (135-145) mmol/L Potassium 3.4 L (3.5-5.0) mmol/L Chloride 98 L (101-111) mmol/L Carbon Dioxide 38 H (22-32) mmol/L Anion Gap 6 (2-11) mmol/L BUN 10 (6-24) mg/dL Creatinine 0.88 (0.51-0.95) mg/dL Est GFR ( Amer) 75.8 (>60) Est GFR (Non-Af Amer) 62.6 (>60) BUN/Creatinine Ratio 11.4 (8-20) Glucose 122 H (70-100) mg/dL Lactic Acid (0.5-2.0) mmol/L Uric Acid (2.3-6.6) mg/dL Calcium 9.0 (8.6-10.3) mg/dL Total Bilirubin 0.20 (0.2-1.0) mg/dL AST 16 (13-39) U/L ALT 18 (7-52) U/L Alkaline Phosphatase 140 H (34-104) U/L C-Reactive Protein (<8.01) mg/L Total Protein 7.5 (6.4-8.9) g/dL Albumin 3.7 (3.2-5.2) g/dL Globulin 3.8 (2-4) g/dL Albumin/Globulin Ratio 1.0 (1-3) Result Diagrams: 05/02/19 11:07 05/02/19 11:07 Lab Statement: Any lab studies that have been ordered have been reviewed, and results considered in the medical decision making process. - Radiology Chest X-ray Radiology Interpretation Completed By: Radiologist Summary of Radiographic Findings: Chest X-ray IMPRESSION: No active cardiopulmonary disease is noted. Reviewed by Dr. Redman. - Ultrasound Venous Doppler Study Ultrasound Interpretation Completed By: Radiologist Summary of Ultrasound Findings: Venous Doppler Study IMPRESSION: NO RIGHT LOWER EXTREMITY DEEP VEIN THROMBOSIS. NO LEFT LOWER EXTREMITY DEEP VEIN THROMBOSIS. Reviewed by Dr. Redman. Re-Evaluation - Re-Evaluation First Eval Re-Evaluation Time: 14:42 Change: Unchanged Comment: At 14:42, patient is asking to get dressed and go home. Discharge ED - Sign-Out/Discharge Documenting (check all that apply): Patient Departure - Discharge - Discharge Plan Condition: Stable Disposition: HOME Prescriptions: DOXYcycline CAP(*) [DOXYcycline 100MG CAP(*)] 100 mg PO BID #19 cap Patient Education Materials: Cellulitis (ED) Referrals: Caridad Alvarado NP [Primary Care Provider] - Additional Instructions: - Take antibiotics as prescribed until gone -STay well hydrated - drink plenty of non-alcoholic, non-caffinated beverages - Continue to use your oxygen as normal - contact your doctor to schedule a follow-up appointment this week. If you have pain, fevers or any other concerns it is recommended your return to the emergency department - Attestation Statements Document Initiated by Scribe: Yes Documenting Scribe: Julianne Rai Provider For Whom Denilsonibebony is Documenting (Include Credential): Delphine Redman MD Scribe Attestation: Julianne Cary, scribed for Delphine Redman MD on 05/02/19 at 1444. Status of Scribe Document: Ready
[2019-05-02 12:44] LABS: Erythrocyte Sed Rate > 120 mm/Hr (0-29)
[2019-05-02] MEDS ORDERED: Potassium Chlor TAB* 20 MEQ TAB.ER PO ONE (13:41)
[2019-05-02] MEDS ORDERED: DOXYcycline CAP(*) 100 MG PO ONE (13:41)
[2019-05-02] MEDS ORDERED: Albuterol/Ipratropium NEB.SOL* Albuterol 2.5 MG/Ipratropium 0.5 MG 3 ML INH ONE (13:43)
[2019-05-02 15:15] VITALS: BP 154/70
== END 2019-05-02 15:16 | disposition home or self-care (01) ==
LOC: ED 10:09
DX: R60.9 Edema, unspecified (principal); E03.9 Hypothyroidism, unspecified; I48.91 Unspecified atrial fibrillation; E78.00 Pure hypercholesterolemia, unspecified; R06.02 Shortness of breath; I10 Essential (primary) hypertension; I25.2 Old myocardial infarction; K21.9 Gastro-esophageal reflux disease without esophagitis; J44.9 Chronic obstructive pulmonary disease, unspecified; Z85.118 Personal history of other malignant neoplasm of bronchus and lung; F41.9 Anxiety disorder, unspecified; F32.9 Major depressive disorder, single episode, unspecified; Z79.890 Hormone replacement therapy; Z79.899 Other long term (current) drug therapy; Z85.53 Personal history of malignant neoplasm of renal pelvis
CPT/HCPCS: 36415; 71046; 80053; 83605; 83880; 84550; 85025; 85652; 86140; 87040; 93970; 99284; A9270-GY

== ENCOUNTER 2020-01-20 15:12 | Inpatient (IN) ==
[2020-01-20 16:19] LABS: ABS Lymphocytes 0.8 10^3/ul (1.0-4.8); ABS Monocytes 0.4 10^3/ul (0-0.8); ABS Neutrophils 2.2 10^3/ul (1.5-7.7); Eosinophil % 0.8 %; Hematocrit 31 % (35-47); Hemoglobin 10.2 g/dL (12.0-16.0); Lymphocyte % 23.7 %; Mean Corpuscular HGB Conc 33 g/dL (31-36); Mean Corpuscular Hemoglobin 31 pg (27-31); Mean Corpuscular Volume 95 fL (80-97); Mean Platelet Volume 6.6 fL (7.4-10.4); Nucleated Red Blood Cells % 0.1; Platelet Count 131 10^3/uL (150-450); Red Blood Count 3.24 10^6 /uL (3.70-4.87); Red Cell Distribution Width 14 % (10-15); White Blood Count 3.6 10^3/uL (3.5-10.8)
[2020-01-20 16:32] LABS: INR 1.15 (0.82-1.09)
[2020-01-20 16:37] LABS: Troponin I 0.01 ng/mL (<0.03)
[2020-01-20 16:57] LABS: Albumin 3.6 g/dL (3.2-5.2); Albumin/Globulin Ratio 1.2 (1-3); BUN/Creatinine Ratio 13.6 (8-20); C Reactive Protein 58.81 mg/L (<8.01); Calcium 8.7 mg/dL (8.6-10.3); EGFR African American 58.6 (>60); EGFR Non-African American 48.4 (>60); Magnesium 1.9 mg/dL (1.9-2.7); Potassium 3.4 mmol/L (3.5-5.0); Total Bilirubin 0.3 mg/dL (0.2-1.0); Total Protein 6.6 g/dL (6.4-8.9)
[2020-01-20 17:11] LABS: TSH Ultra Thyroid Stim Horm 5.83 mcIU/mL (0.34-5.60)
[2020-01-20] MEDS ORDERED: NS 0.9% 1000 ml BAG 1,000 ML IV ONE (18:23)
[2020-01-20 20:48] LABS: Urine Appearance Cloudy; Urine Bilirubin Negative (Negative); Urine Blood 1+ (Negative); Urine Color Yellow; Urine Glucose Negative (Negative); Urine Ketones Negative (Negative); Urine Nitrite Positive (Negative); Urine Protein 1+(30 mg/dL) (Negative); Urine Specific Gravity 1.013 (1.010-1.030); Urine Urobilinogen Negative (Negative)
[2020-01-20 21:12] LABS: Urine Bacteria 2+ (Absent); Urine Red Blood Cell Trace(0-2/hpf) (Absent); Urine Squamous Epithelial Cell Present (Absent); Urine White Blood Cell 3+(>20/hpf) (Absent)
[2020-01-20] MEDS ORDERED: Cefepime 2 GM in Dextrose 2 GM/50 ML BAG IV ONE (21:34)
[2020-01-21] MEDS ORDERED: Albuterol HFA INHALER 8 gm MDI INH PRN (00:36)
[2020-01-21] MEDS: Cefepime 2 GM in Dextrose 2 GM/50 ML BAG IV SCH ×3 (05:01→22:01)
[2020-01-21 06:12] LABS: ABS Lymphocytes 1.1 10^3/ul (1.0-4.8); ABS Monocytes 0.3 10^3/ul (0-0.8); ABS Neutrophils 1.4 10^3/ul (1.5-7.7); Eosinophil % 1.5 %; Hematocrit 30 % (35-47); Lymphocyte % 39.8 %; Mean Corpuscular HGB Conc 33 g/dL (31-36); Mean Corpuscular Hemoglobin 32 pg (27-31); Mean Corpuscular Volume 96 fL (80-97); Mean Platelet Volume 6.7 fL (7.4-10.4); Nucleated Red Blood Cells % 0.1; Platelet Count 121 10^3/uL (150-450); Red Blood Count 3.14 10^6 /uL (3.70-4.87); Red Cell Distribution Width 15 % (10-15); White Blood Count 2.9 10^3/uL (3.5-10.8)
[2020-01-21 06:21] LABS: BUN/Creatinine Ratio 14.9 (8-20); Calcium 8.5 mg/dL (8.6-10.3); EGFR African American 70.2 (>60); EGFR Non-African American 58.1 (>60); Potassium 3.5 mmol/L (3.5-5.0)
[2020-01-21] MEDS: SPIRIVA Respimat (tiotropium) 2.5 mcg/inh Inhaler INH SCH (08:34)
[2020-01-21] MEDS: Nystatin TOP POWDER 15 GM BTL TOPICAL SCH ×3 (10:21→22:04)
[2020-01-22] MEDS: Nystatin TOP POWDER 15 GM BTL TOPICAL SCH ×3 (01:00→22:04)
[2020-01-22] MEDS: Cefepime 2 GM in Dextrose 2 GM/50 ML BAG IV SCH ×3 (05:41→22:03)
[2020-01-22] MEDS: SPIRIVA Respimat (tiotropium) 2.5 mcg/inh Inhaler INH SCH (08:11)
[2020-01-23] MEDS: Cefepime 2 GM in Dextrose 2 GM/50 ML BAG IV SCH (05:25)
[2020-01-23] MEDS: SPIRIVA Respimat (tiotropium) 2.5 mcg/inh Inhaler INH SCH (07:12)
[2020-01-23] MEDS: Nystatin TOP POWDER 15 GM BTL TOPICAL SCH ×3 (09:49→20:22)
[2020-01-23 10:47] LABS: ABS Eosinophils 0.1 10^3/ul (0-0.6); ABS Lymphocytes 0.8 10^3/ul (1.0-4.8); ABS Monocytes 0.2 10^3/ul (0-0.8); ABS Neutrophils 1.5 10^3/ul (1.5-7.7); Eosinophil % 2.7 %; Hematocrit 32 % (35-47); Hemoglobin 10.6 g/dL (12.0-16.0); Lymphocyte % 29.8 %; Mean Corpuscular HGB Conc 33 g/dL (31-36); Mean Corpuscular Hemoglobin 32 pg (27-31); Mean Corpuscular Volume 95 fL (80-97); Mean Platelet Volume 6.6 fL (7.4-10.4); Nucleated Red Blood Cells % 0.1; Platelet Count 124 10^3/uL (150-450); Red Blood Count 3.35 10^6 /uL (3.70-4.87); Red Cell Distribution Width 15 % (10-15); White Blood Count 2.6 10^3/uL (3.5-10.8)
[2020-01-23 11:11] LABS: BUN/Creatinine Ratio 12.8 (8-20); Calcium 8.7 mg/dL (8.6-10.3); EGFR African American 70.2 (>60); EGFR Non-African American 58.1 (>60); Potassium 3.8 mmol/L (3.5-5.0)
[2020-01-23] MEDS: cefTRIAXone 1 gm/50 mL NS BAG 1 GM/50 ML BAG IVPB SCH (12:59)
[2020-01-24 06:30] LABS: ABS Lymphocytes 0.7 10^3/ul (1.0-4.8); ABS Monocytes 0.3 10^3/ul (0-0.8); ABS Neutrophils 1.3 10^3/ul (1.5-7.7); Eosinophil % 1.7 %; Hematocrit 29 % (35-47); Hemoglobin 9.7 g/dL (12.0-16.0); Lymphocyte % 32.3 %; Mean Corpuscular HGB Conc 33 g/dL (31-36); Mean Corpuscular Hemoglobin 31 pg (27-31); Mean Corpuscular Volume 95 fL (80-97); Mean Platelet Volume 6.5 fL (7.4-10.4); Nucleated Red Blood Cells % 0.2; Platelet Count 107 10^3/uL (150-450); Red Blood Count 3.09 10^6 /uL (3.70-4.87); Red Cell Distribution Width 15 % (10-15); White Blood Count 2.3 10^3/uL (3.5-10.8)
[2020-01-24 06:45] LABS: BUN/Creatinine Ratio 14.1 (8-20); Calcium 8.5 mg/dL (8.6-10.3); EGFR Non-African American 59.5 (>60); Potassium 3.4 mmol/L (3.5-5.0)
[2020-01-24] MEDS: SPIRIVA Respimat (tiotropium) 2.5 mcg/inh Inhaler INH SCH (07:19)
[2020-01-24] MEDS ORDERED: KCL 20 MEQ/100 ML IVPREMIX 20 MEQ/100 ML BAG IV ONE (07:54)
[2020-01-24] MEDS: Nystatin TOP POWDER 15 GM BTL TOPICAL SCH ×3 (09:35→21:45)
[2020-01-24] MEDS: cefTRIAXone 1 gm/50 mL NS BAG 1 GM/50 ML BAG IVPB SCH (13:06)
[2020-01-24 19:10] LABS: ABS Lymphocytes 0.6 10^3/ul (1.0-4.8); ABS Monocytes 0.2 10^3/ul (0-0.8); ABS Neutrophils 1.3 10^3/ul (1.5-7.7); Eosinophil % 1.3 %; Hematocrit 29 % (35-47); Hemoglobin 9.5 g/dL (12.0-16.0); Lymphocyte % 26.6 %; Mean Corpuscular HGB Conc 34 g/dL (31-36); Mean Corpuscular Hemoglobin 31 pg (27-31); Mean Corpuscular Volume 93 fL (80-97); Mean Platelet Volume 6.4 fL (7.4-10.4); Platelet Count 106 10^3/uL (150-450); Red Blood Count 3.05 10^6 /uL (3.70-4.87); Red Cell Distribution Width 14 % (10-15); White Blood Count 2.1 10^3/uL (3.5-10.8)
[2020-01-24 19:19] LABS: BUN/Creatinine Ratio 16.3 (8-20); Calcium 8.5 mg/dL (8.6-10.3); EGFR African American 84.6 (>60); EGFR Non-African American 69.9 (>60); Potassium 3.9 mmol/L (3.5-5.0)
[2020-01-25] MEDS: SPIRIVA Respimat (tiotropium) 2.5 mcg/inh Inhaler INH SCH (08:12)
[2020-01-25] MEDS: Nystatin TOP POWDER 15 GM BTL TOPICAL SCH ×3 (09:22→21:00)
[2020-01-25 09:50] LABS: Urine Appearance Cloudy; Urine Bilirubin Negative (Negative); Urine Blood 2+ (Negative); Urine Color Yellow; Urine Glucose Negative (Negative); Urine Ketones Negative (Negative); Urine Nitrite Negative (Negative); Urine Protein 2+(100 mg/dL) (Negative); Urine Specific Gravity 1.012 (1.010-1.030); Urine Urobilinogen Negative (Negative)
[2020-01-25 10:05] LABS: Urine Bacteria Absent (Absent); Urine Red Blood Cell 3+(>10/hpf) (Absent); Urine Squamous Epithelial Cell Present (Absent); Urine White Blood Cell 1+(6-10/hpf) (Absent)
[2020-01-25] MEDS ORDERED: Iodixanol (CONTRAST) 320 MG/ML 100 ML SDV IV ONE (11:07)
[2020-01-26 06:42] LABS: ABS Lymphocytes 0.9 10^3/ul (1.0-4.8); ABS Monocytes 0.2 10^3/ul (0-0.8); ABS Neutrophils 1.1 10^3/ul (1.5-7.7); Eosinophil % 0.6 %; Hematocrit 29 % (35-47); Hemoglobin 9.5 g/dL (12.0-16.0); Lymphocyte % 40.1 %; Mean Corpuscular HGB Conc 33 g/dL (31-36); Mean Corpuscular Hemoglobin 31 pg (27-31); Mean Corpuscular Volume 95 fL (80-97); Mean Platelet Volume 6.6 fL (7.4-10.4); Platelet Count 94 10^3/uL (150-450); Red Blood Count 3.04 10^6 /uL (3.70-4.87); Red Cell Distribution Width 14 % (10-15); White Blood Count 2.1 10^3/uL (3.5-10.8)
[2020-01-26 06:49] LABS: BUN/Creatinine Ratio 12.8 (8-20); Calcium 8.1 mg/dL (8.6-10.3); EGFR African American 77.8 (>60); EGFR Non-African American 64.3 (>60); Potassium 3.5 mmol/L (3.5-5.0)
[2020-01-26] MEDS: SPIRIVA Respimat (tiotropium) 2.5 mcg/inh Inhaler INH SCH (07:01)
[2020-01-26] MEDS: Nystatin TOP POWDER 15 GM BTL TOPICAL SCH ×2 (09:27→15:51)
[2020-01-26 14:21] VITALS: BP 117/78
== END 2020-01-26 15:40 | disposition home health service (06) | DRG 178 ==
LOC: ED 15:12 → MED 22:15
PROVIDERS: ADMIT Internal Medicine; ATTEND Internal Medicine